=== PATIENT | female | born 1955 | race Caucasian/White ===

== ENCOUNTER 2021-05-03 15:46 | Inpatient (IN) | payer OTHER ==
[~2021-05-03] VITALS: Ht 172.7 cm; Wt 82.8 kg
[2021-05-03 16:26] LABS: Hematocrit 24.1 % (33.0-51.0); Hemoglobin 8.7 g/dL (11.5-16.0); Mean Corpuscular HGB 38.7 pg (26.0-34.0); Mean Corpuscular HGB Conc 36.1 g/dL (31.5-36.5); Mean Corpuscular Volume 107 fL (80-100); Mean Platelet Volume 10.4 fL (9.1-12.4); Platelet Count 224 K/mm3 (150-400); RDW Coefficient Variation 16.5 % (11.7-14.2); RDW Standard Deviation 65.1 fL (35.1-46.3); Red Blood Cell Count 2.25 M/mm3 (3.80-5.20)
[2021-05-03 16:44] LABS: Alanine Aminotransfer (ALT/SGP 37 U/L (12-78); Albumin, Blood 1.5 g/dL (3.4-5.0); Albumin/Globulin Ratio 0.4 (0.8-1.8); Alk Phos 544 U/L (50-136); Anion Gap 10 mmol/L (6-16); Aspartate Aminotrans (AST/SGOT 82 U/L (12-37); Bilirubin, Total 4.5 mg/dL (0.1-1.0); Blood Urea Nitrogen 8 mg/dL (8-24); Bun/Creatinine Ratio 16.3 (12.0-20.0); CO2, Blood 21 mmol/L (21-32); CPK Creatine Kinase 93 U/L (26-193); Calcium, Blood 7.7 mg/dL (8.5-10.1); Chloride, Blood 106 mmol/L (98-108); Creatinine, Blood 0.49 mg/dL (0.40-1.00); Globulin, Blood 3.9 g/dL (2.2-4.0); Glomerular Filtration Rate >60 (60-); Glucose, Blood 92 mg/dL (70-99); Potassium, Blood 4.2 mmol/L (3.5-5.5); Sodium, Blood 137 mmol/L (136-145); Total Protein, Blood 5.4 g/dL (6.4-8.2)
[2021-05-03 16:53] LABS: BAND PERCENT MAN 9 % (0-8); BASOPHILS PERCENT MAN 0 % (0-2); EOSINOPHILS PERCENT MAN 0 % (0-6); LYMPHOCYTES ABSOLUTE MAN 0.58 K/mm3 (0.84-5.20); LYMPHOCYTES PERCENT MAN 2 % (21-46); MONOCYTES ABSOLUTE MAN 0.29 K/mm3 (0.16-1.47); MONOCYTES PERCENT MAN 1 % (4-13); NEUTROPHILS ABSOLUTE MAN 28.51 K/mm3 (1.96-9.15); SEG NEUTROPHILS PERCENT MAN 88 % (41-73); TOTAL CELLS COUNTED 100
[2021-05-03 16:54] LABS: Creatine Kinase MB <1.0 ng/mL (0.0-3.6); Creatine Kinase MB Index Unable to Calculate (0.0-4.0)
[2021-05-03 17:09] LABS: Source, Urine Catheter
[2021-05-03 17:16] LABS: Appearance, Urine Hazy (Clear); Blood, Urine Neg (Neg); Color, Urine Yellow (P-Yellow); Glucose Qualitative, Urine Neg (Neg); Ketones, Urine Neg (Neg); Leukocyte Esterase, Urine 2+ (Neg); Nitrite, Urine Pos (Neg); Protein, Urine 1+ (Neg); Urobilinogen, Urine 2+ (Normal)
[2021-05-03 17:30] LABS: Bilirubin, Urine 1+ (Neg)
[2021-05-03 17:33] LABS: Bacteria Many /hpf; Red Blood Cells, Urine 0-2 /hpf (0-2); Squamous Epithelial Cells Few /hpf (Few); WBC Cast Rare /lpf (0)
[2021-05-03 20:56] LABS: Source, Urine Catheter
[2021-05-03 21:00] LABS: Appearance, Urine Clear (Clear); Bilirubin, Urine Neg (Neg); Blood, Urine 1+ (Neg); Color, Urine Yellow (P-Yellow); Glucose Qualitative, Urine Neg (Neg); Ketones, Urine Neg (Neg); Leukocyte Esterase, Urine 3+ (Neg); Nitrite, Urine Pos (Neg); Protein, Urine 1+ (Neg); Specific Gravity, Urine 1.015 (1.003-1.022); Urobilinogen, Urine 1+ (Normal)
[2021-05-03 21:07] LABS: Bacteria Many /hpf; Red Blood Cells, Urine 0-2 /hpf (0-2); Squamous Epithelial Cells Few /hpf (Few); White Blood Cells, Urine 25-50 /hpf (0-5)
[2021-05-03 21:34] LABS: Alpha Feto Protein, Tumor Mkr 3.5 ng/mL (0.0-8.0); Cancer Antigen 19-9 90.7 U/mL (2.0-37.0); Carcinoembryonic Antigen 3.3 ng/mL (0.0-3.0)
--- NOTE | 2021-05-04 05:00 | NUR ---
SUMMARY PT ARRIVED TO FLOOR IN NO DISTRESS. PT SKIN ISSUES CLEANED AND MEPILEX APPLIED. PICTURES TAKEN. PT PAIN TX PER EMAR W/ RELIEF. PT LATIC IMPROVED. BENITO PLACED DUE TO SKIN ISSUES. PT HAS SLEPT WELL T/O SHIFT. PT CURRENTLY SLEEPING IN NO DISTRESS. CALL LIGHT IN REACH AND BED ALARM ON.
[2021-05-04 05:15] LABS: Hematocrit 23.4 % (33.0-51.0); Hemoglobin 8.3 g/dL (11.5-16.0); Mean Corpuscular HGB 38.4 pg (26.0-34.0); Mean Corpuscular HGB Conc 35.5 g/dL (31.5-36.5); Mean Corpuscular Volume 108 fL (80-100); Mean Platelet Volume 10.5 fL (9.1-12.4); Platelet Count 197 K/mm3 (150-400); RDW Coefficient Variation 16.6 % (11.7-14.2); RDW Standard Deviation 65.5 fL (35.1-46.3); Red Blood Cell Count 2.16 M/mm3 (3.80-5.20); White Blood Cell Count 29.34 K/mm3 (4.00-11.30)
[2021-05-04 06:34] LABS: Alanine Aminotransfer (ALT/SGP 33 U/L (12-78); Albumin, Blood 1.4 g/dL (3.4-5.0); Albumin/Globulin Ratio 0.4 (0.8-1.8); Alk Phos 540 U/L (50-136); Anion Gap 10 mmol/L (6-16); Aspartate Aminotrans (AST/SGOT 72 U/L (12-37); Bilirubin, Total 4.5 mg/dL (0.1-1.0); Blood Urea Nitrogen 9 mg/dL (8-24); Bun/Creatinine Ratio 17.5 (12.0-20.0); CO2, Blood 20 mmol/L (21-32); Calcium, Blood 7.3 mg/dL (8.5-10.1); Chloride, Blood 110 mmol/L (98-108); Creatinine, Blood 0.51 mg/dL (0.40-1.00); Ferritin, Serum 668 ng/mL (8-252); Globulin, Blood 3.2 g/dL (2.2-4.0); Glomerular Filtration Rate >60 (60-); Glucose, Blood 61 mg/dL (70-99); Iron Serum 41 ug/dL (50-170); Percent Saturation 107.9 % (15.0-50.0); Potassium, Blood 4.2 mmol/L (3.5-5.5); Sodium, Blood 140 mmol/L (136-145); Total Iron Binding Capacity 38 ug/dL (250-450); Total Protein, Blood 4.6 g/dL (6.4-8.2)
--- NOTE | 2021-05-04 18:25 | NUR ---
SHIFT SUMMARY PATIENT MEDICATED FOR PAIN X2. PATIENT MEDICATED FOR NAUSEA X1. PATIENT DENIES SHORTNESS OF BREATH. PATIENT WORKED WITH PT TODAY. ABLE TO SIT ON SIDE OF BED, BUT GOT VERY DIZZY. PATIENT IS A 2 PERSON TURN IN BED. PT NOT RECOMMENDING PATIENT TRANSFER YET. DRESSING ON SACRAL WOUND CHANGED X3. BENITO PATENT AND DRAINING. NEW IV PLACED IN LEFT FOREARM. PATIENT IS EATING AND DRINKING WELL. PATIENT IS PLEASANT AND COOPERATIVE WITH CARE.
[2021-05-04 18:52] LABS: Vancomycin, Trough 22.2 ug/mL (5.0-10.0)
[2021-05-05 05:19] LABS: BASOPHILS ABSOLUTE AUTO 0.13 K/mm3 (0.00-0.23); BASOPHILS PERCENT AUTO 1 % (0-2); EOSINOPHILS ABSOLUTE AUTO 0.53 K/mm3 (0.00-0.68); EOSINOPHILS PERCENT AUTO 2 % (0-6); Hemoglobin 8.1 g/dL (11.5-16.0); IMMATURE GRAN ABSOLUTE AUTO 0.19 K/mm3 (0.00-0.10); IMMATURE GRAN PERCENT AUTO 1 % (0-1); LYMPHOCYTES ABSOLUTE AUTO 2.15 K/mm3 (0.84-5.20); LYMPHOCYTES PERCENT AUTO 8 % (21-46); MONOCYTES ABSOLUTE AUTO 1.42 K/mm3 (0.16-1.47); MONOCYTES PERCENT AUTO 6 % (4-13); Mean Corpuscular HGB Conc 33.8 g/dL (31.5-36.5); Mean Platelet Volume 10.8 fL (9.1-12.4); NEUTROPHILS ABSOLUTE AUTO 21.34 K/mm3 (1.96-9.15); NEUTROPHILS PERCENT AUTO 83 % (41-73); Platelet Count 189 K/mm3 (150-400); RDW Coefficient Variation 17.2 % (11.7-14.2); RDW Standard Deviation 71.4 fL (35.1-46.3); Red Blood Cell Count 2.13 M/mm3 (3.80-5.20); White Blood Cell Count 25.76 K/mm3 (4.00-11.30)
[2021-05-05 05:33] LABS: Mean Corpuscular Volume 113 fL (80-100)
[2021-05-05 06:08] LABS: Alanine Aminotransfer (ALT/SGP 40 U/L (12-78); Albumin, Blood 1.5 g/dL (3.4-5.0); Albumin/Globulin Ratio 0.4 (0.8-1.8); Alk Phos 641 U/L (50-136); Anion Gap 8 mmol/L (6-16); Aspartate Aminotrans (AST/SGOT 78 U/L (12-37); Bilirubin, Total 3.7 mg/dL (0.1-1.0); Blood Urea Nitrogen 12 mg/dL (8-24); Bun/Creatinine Ratio 16.3 (12.0-20.0); CO2, Blood 21 mmol/L (21-32); Calcium, Blood 7.5 mg/dL (8.5-10.1); Chloride, Blood 109 mmol/L (98-108); Creatinine, Blood 0.74 mg/dL (0.40-1.00); Globulin, Blood 3.6 g/dL (2.2-4.0); Glomerular Filtration Rate >60 (60-); Glucose, Blood 118 mg/dL (70-99); Magnesium, Blood 1.8 mg/dL (1.6-2.4); Potassium, Blood 4.2 mmol/L (3.5-5.5); Sodium, Blood 138 mmol/L (136-145); Total Protein, Blood 5.1 g/dL (6.4-8.2)
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
--- NOTE | 2021-05-05 16:24 | NUR ---
SHIFT SUMMARY PATIENT MEDICATED FOR PAIN X2, TRAMADOL AND TORODAL. PATIENT MEDICATED FOR NAUSEA X1. PATIENT DENIES SHORTNESS OF BREATH. PATIENT STATED FEELING "FOGGY" THIS AFTERNOON, REQUESTS TO NOT TAKE PAIN MEDICATIONS TOGETHER. PATIENT WORKED WITH OT AND PT. PATIENT STILL VERY WEAK AND COULD NOT STAND. PATIENT EATING AND DRINKING BETTER TODAY. BENITO IS PATENT AND DRAINING TO GRAVITY. PATIENT IS PLEASANT AND COOPERATIVE WITH CARE.
--- NOTE | 2021-05-05 16:25 | NUR ---
Pt states she is tired this afternoon. She worked extensively with OT today, so PT opted to evaluate tomorrow instead. Pt states she can afford private insurance, and understands the importance of pursuing it at this time in her life. She states she is ready to get her "life back on track" after the past few months of chaos that resulted in homelessness. She is alert, oriented, pleasant and cooperative. Pt states she currently has a strained relationship with her mother, related to her mom's "Taoism beliefs", but also states she's glad her mom has visited the past 2 days. Hopefulthat pt will once again thrive with encouragement and offerings of community resources.
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
[2021-05-06 05:48] LABS: BASOPHILS ABSOLUTE AUTO 0.12 K/mm3 (0.00-0.23); BASOPHILS PERCENT AUTO 1 % (0-2); EOSINOPHILS ABSOLUTE AUTO 0.52 K/mm3 (0.00-0.68); EOSINOPHILS PERCENT AUTO 3 % (0-6); Hematocrit 24.6 % (33.0-51.0); Hemoglobin 8.1 g/dL (11.5-16.0); IMMATURE GRAN ABSOLUTE AUTO 0.15 K/mm3 (0.00-0.10); IMMATURE GRAN PERCENT AUTO 1 % (0-1); LYMPHOCYTES ABSOLUTE AUTO 1.89 K/mm3 (0.84-5.20); LYMPHOCYTES PERCENT AUTO 10 % (21-46); MONOCYTES ABSOLUTE AUTO 1.16 K/mm3 (0.16-1.47); MONOCYTES PERCENT AUTO 6 % (4-13); Mean Corpuscular HGB 37.5 pg (26.0-34.0); Mean Corpuscular HGB Conc 32.9 g/dL (31.5-36.5); Mean Corpuscular Volume 114 fL (80-100); Mean Platelet Volume 10.7 fL (9.1-12.4); NEUTROPHILS ABSOLUTE AUTO 15.84 K/mm3 (1.96-9.15); NEUTROPHILS PERCENT AUTO 81 % (41-73); Platelet Count 186 K/mm3 (150-400); RDW Coefficient Variation 16.8 % (11.7-14.2); Red Blood Cell Count 2.16 M/mm3 (3.80-5.20); White Blood Cell Count 19.68 K/mm3 (4.00-11.30)
[2021-05-06 11:34] LABS: Vancomycin, Trough 26.9 ug/mL (5.0-10.0)
--- NOTE | 2021-05-06 13:02 | NUR ---
Met with pt again today for therapeutic visit. She remenisced on her life with her late . She talked about how happy they were for many years in sobriety together. 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 She remains extremely deconditioned, but plan in place to work with PT and OT throughout this hospital stay. Pt given phone number for private insurance to call today.
--- NOTE | 2021-05-06 15:33 | NUR ---
theraputic time with pateint brought palliative volunteer in to visit with pt and talk about regular things nothing medical.
--- NOTE | 2021-05-06 16:56 | NUR ---
DAY SHIFT SUMMARY PT PLEASANT, WOUND TO SACRUM/BUTTOCK DRAINING, WOUND CARE PROVIDED AND WOUND REDRESSED. PT ON RA. TELE ON WITH NSR AT 91. PT IS STIFF AND WEAK, UNABLE TO REPOSITION SELF IN BED, 2 PERSON ASSIST TO REPOSITION. PT NOT UP FROM BED TODAY. PITTING EDEMA BLE. PT IS COOPERATIVE WITH CARE. CALL LIGHT WITHIN REACH. SPEAKING WITH CARE MANAGEMENT ABOUT POSSIBLE PLACEMENT FOR DISCHARGE.
[2021-05-06 18:32] LABS: Creatinine, Blood 0.91 mg/dL (0.40-1.00); Vancomycin, Random 25.4 ug/mL
--- NOTE | 2021-05-07 04:23 | NUR ---
SHIFT SUMMARY NO ACUTE CHANGES IN PT. PT IS PLEASANT. TELE HAS BEEN IN THE 90'S. MEDICATED FOR PAIN PER EMAR. BLE PITTING EDEMA. CALL LIGHT WITHIN REACH. WILL CONTINUE TO MONITOR.
[2021-05-07 11:32] LABS: Vancomycin, Random 16.7 ug/mL
--- NOTE | 2021-05-07 16:38 | NUR ---
DAY SHIFT SUMMARY PT PLEASANT. PT/OT IN TO WORK WITH PT TODAY. PT ABLE TO GET PATIENT UP TO CHAIR AT BEDSIDE TO EAT LUNCH. PATIENT VOICED THIS FEELING GOOD. 2 NURSES AND INFORMATICS CONSULTANT ABLE TO GET PT BACK TO BED AFTER LUNCH. PT STILL WITH 4+ EDEMA TO BLE. TELE RUNING AT [facility] IN 90S, ORDER PLACED AND COMPLETED TO DC TELE. JIGNA DENNY'D PER ORDER. CALL LIGHT WITHIN REACH.
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
--- NOTE | 2021-05-08 04:23 | NUR ---
SHIFT SUMMARY AOX4. SLOW TO RESPOND. PLEASENT & COOPERATIVE c CARE. VSS. REPORTS 8/10 PAIN IN WOUND, LOW BACK & KNEES, MEDICATED 1X c 100MG ULTRAM. DENIES N/V OR SOB. VERY WEAK & DECONDITIONED, 2 STAND PIVOT TRANSFER TO [facility] c GAITBELT. +4 PITTING EDEMA T/O BLE. BENITO DC'D YESTERDAY PER DAY SHIFT, PT HAS ONLY ROUGHLY 100ML URINE OUTPUT SINCE. ENCOURAGED PO FLUIDS, WILL BLADDER SCAN IF PT DOESNT VOID AGAIN BEFORE END OF SHIFT. DRESSING ON SACRUM WOUND CHANGED. MOD AMOUNT SEROUS, YELLOW DRAINAGE FROM RED, EXCORIATED WOUND. PLAN TO POSSIBLY DC TODAY. WCTM UNTIL DAY NURSE ASSUMES CARE.
[2021-05-08 06:15] LABS: Anion Gap 8 mmol/L (6-16); Blood Urea Nitrogen 9 mg/dL (8-24); Bun/Creatinine Ratio 12.4 (12.0-20.0); CO2, Blood 30 mmol/L (21-32); Calcium, Blood 7.9 mg/dL (8.5-10.1); Chloride, Blood 102 mmol/L (98-108); Creatinine, Blood 0.73 mg/dL (0.40-1.00); Glomerular Filtration Rate >60 (60-); Glucose, Blood 87 mg/dL (70-99); Potassium, Blood 3.7 mmol/L (3.5-5.5); Sodium, Blood 140 mmol/L (136-145)
[2021-05-08 07:00] LABS: BASOPHILS ABSOLUTE AUTO 0.09 K/mm3 (0.00-0.23); BASOPHILS PERCENT AUTO 1 % (0-2); EOSINOPHILS ABSOLUTE AUTO 0.41 K/mm3 (0.00-0.68); EOSINOPHILS PERCENT AUTO 2 % (0-6); Hematocrit 23.6 % (33.0-51.0); IMMATURE GRAN PERCENT AUTO 1 % (0-1); LYMPHOCYTES ABSOLUTE AUTO 1.79 K/mm3 (0.84-5.20); LYMPHOCYTES PERCENT AUTO 10 % (21-46); MONOCYTES ABSOLUTE AUTO 1.71 K/mm3 (0.16-1.47); MONOCYTES PERCENT AUTO 10 % (4-13); Mean Corpuscular HGB 38.5 pg (26.0-34.0); Mean Corpuscular HGB Conc 33.9 g/dL (31.5-36.5); Mean Corpuscular Volume 114 fL (80-100); NEUTROPHILS ABSOLUTE AUTO 13.62 K/mm3 (1.96-9.15); NEUTROPHILS PERCENT AUTO 77 % (41-73); Platelet Count 180 K/mm3 (150-400); RDW Coefficient Variation 16.9 % (11.7-14.2); RDW Standard Deviation 69.5 fL (35.1-46.3); Red Blood Cell Count 2.08 M/mm3 (3.80-5.20); White Blood Cell Count 17.72 K/mm3 (4.00-11.30)
--- NOTE | 2021-05-08 18:13 | NUR ---
SHIFT SUMMARY PT IS A/O X4. PT REPORTED PAIN AND WAS TREATED PER EMAR. DRESSINGS ON SACRUM AND BUTTOCKS WERE CHANGED. MOD YELLOW DRAINAGE WAS PRESENT. PT BEGAN URINATING APPROPRIATELY THROUGHOUT SHIFT AFTER DC OF BENITO DURING THE NIGHT. NO DISTRESS WAS NOTED AND PT WAS COOPERATIVE WITH CARE.
--- NOTE | 2021-05-09 04:27 | NUR ---
HEALTH SCIENCE WRITER SUMMARY ADMITTED FOR SEPTIC SHOCK - RESOLVED. PT IS A DNR. POSSIBLE DISCHARGE TOMORROW. PT IS ALERT AND ORIENTED. STILL REQUIRES TWO PERSON ASSIST TO THE COMMODE - PT IS VERY WEAK AND STATES HER "KNEES ARE SHOT". PT MEDICATED WITH TRAMADOL X1 FOR THE PAIN IN HER COCCYX WOUND ALONG WITH PAIN IN HER LOW BACK AND KNEES. PT HAS BEEN RESTING THROUGHOUT THE NIGHT WITH NO OTHER COMPLAINTS.
--- NOTE | 2021-05-09 18:30 | NUR ---
SHIFT SUMMARY NO ACUTE CHANGES WITH PT THIS SHIFT. PT HAD ONE SMALL BM. PATIENT TOLERATED CARE WELL. SACRUM WOUND WAS CLEANSED AND DRESSING WAS CHANGED. PAIN WAS TREATED PER EMAR. SEE PREVIOUS NOTES.
--- NOTE | 2021-05-10 04:48 | NUR ---
A/OX4. 1-2 PA TO BSC W/ FWW. MEPELEX DRESSING IN PLACE SACRAL DECUB - ESCORIATION SURROUNDING ULCER. Q6 PRN TRAMADOL FOR PAIN. DISCHARGE PLANNING ON BOARD, BUT HAVING DIFFICULTIES WITH PLACEMENT ISSUES.
--- NOTE | 2021-05-10 04:55 | NUR ---
A/OX4. 1-2 PA TO BSC. MEPELEX TO SACRAL DECUB, ESCORIATED SURROUNDING ULCER. Q6 TRAMADOL FOR PAIN. POSSIBLE DC 05/10, DCP ON BOARD, BUT HAVING DIFFICULTIES WITH PLACEMENT ISSUES.
--- NOTE | 2021-05-10 17:25 | NUR ---
SHIFT SUMMARY PATIENT ALERT AND ORIENTED THIS SHIFT. PATIENT UP TO THE BEDSIDE RECLINER THIS MORNING FOR BREAKFAST AND LUNCH. PATIENT BACK TO BED AFTER LUNCH. PATIENT UP TO BSC MULTIPLE TIMES THIS SHIFT WITH 1 ASSIST. PATIENT WALKED INTO THE HALLWAY THIS AFTERNOON WITH PT. PATIENT CURRENTLY SITTING UP IN BED WATCHING TELEVISION.
--- NOTE | 2021-05-11 07:44 | NUR ---
NO CHANGES FROM PREVIOUS SHIFT. PATIENT CONTINUES TO HAVE A VERY SORE BUTTOCKS, WELL HER LEGS. TRAMADOL 100MG GIVEN TWICE FOR COMFORT GLUTEAL/SACRAL WOUND COVERED WITH PINK OINTMENT PATIENT CONTINUED TO SCRATCH ON MEMPILEX UNTIL THEY CAME OFF
--- NOTE | 2021-05-11 16:09 | NUR ---
SHIFT SUMMARY PATIENT DENIES PAIN, NAUSEA, AND SHORTNESS OF BREATH. EATING AND DRINKING WELL. UP IN CHAIR FOR MEALS ONE ASSIST W/FWW AND GAIT BELT. STRENGTH SLOWLY INCREASING. WOUND CARE COMPLETED. PLEASANT AND COOPERATIVE WITH CARE.
[2021-05-12 04:45] LABS: Hematocrit 24.9 % (33.0-51.0); Hemoglobin 8.8 g/dL (11.5-16.0); Mean Corpuscular HGB 38.4 pg (26.0-34.0); Mean Corpuscular HGB Conc 35.3 g/dL (31.5-36.5); Mean Corpuscular Volume 109 fL (80-100); Mean Platelet Volume 10.8 fL (9.1-12.4); Platelet Count 233 K/mm3 (150-400); RDW Coefficient Variation 17.4 % (11.7-14.2); RDW Standard Deviation 69.2 fL (35.1-46.3); Red Blood Cell Count 2.29 M/mm3 (3.80-5.20)
[2021-05-12 04:56] LABS: International Normalized Ratio 1.25; Prothrombin Time Results 12.9 Sec (9.7-11.5)
[2021-05-12 05:05] LABS: Alanine Aminotransfer (ALT/SGP 33 U/L (12-78); Albumin, Blood 1.5 g/dL (3.4-5.0); Albumin/Globulin Ratio 0.4 (0.8-1.8); Alk Phos 478 U/L (50-136); Anion Gap 7 mmol/L (6-16); Aspartate Aminotrans (AST/SGOT 76 U/L (12-37); Bilirubin, Total 2.4 mg/dL (0.1-1.0); Blood Urea Nitrogen 8 mg/dL (8-24); Bun/Creatinine Ratio 13.3 (12.0-20.0); CO2, Blood 32 mmol/L (21-32); Chloride, Blood 98 mmol/L (98-108); Globulin, Blood 3.9 g/dL (2.2-4.0); Glomerular Filtration Rate >60 (60-); Glucose, Blood 78 mg/dL (70-99); Potassium, Blood 3.6 mmol/L (3.5-5.5); Sodium, Blood 137 mmol/L (136-145); Total Protein, Blood 5.4 g/dL (6.4-8.2)
--- NOTE | 2021-05-12 05:16 | NUR ---
SHIFT SUMMARY A/OX3, FLAT AFFECT. COOPERATIVE WITH CARE. C/O PAIN TO BOTTOM AND BLE, MEDICATED PER EMAR. MEPILEX CHANGED TO COCCYX WOUND. VSS, NO ACUTE CHANGES AT THIS TIME. BED IN LOWEST POSITION WITH CALL LIGHT IN REACH. WILL CONTINUE TO MONITOR AND REPORT TO ONCOMING RN.
[2021-05-12 07:19] LABS: BAND PERCENT MAN 8 % (0-8); BASOPHILS PERCENT MAN 0 % (0-2); EOSINOPHILS ABSOLUTE MAN 0.44 K/mm3 (0.00-0.68); EOSINOPHILS PERCENT MAN 2 % (0-6); LYMPHOCYTES ABSOLUTE MAN 4.48 K/mm3 (0.84-5.20); LYMPHOCYTES PERCENT MAN 20 % (21-46); MONOCYTES ABSOLUTE MAN 0.89 K/mm3 (0.16-1.47); MONOCYTES PERCENT MAN 4 % (4-13); NEUTROPHILS ABSOLUTE MAN 16.35 K/mm3 (1.96-9.15); PROMYELOCYTE ABSOLUTE MAN 0.22 K/mm3 (0.00-0.00); PROMYELOCYTE PERCENT MAN 1 % (0-0); SEG NEUTROPHILS PERCENT MAN 65 % (41-73); TOTAL CELLS COUNTED 100
--- NOTE | 2021-05-12 16:31 | NUR ---
Spiritual care visit conducted by Lee Hunt. He assesses pt's spiritual distress in regards to her relationship to God amidst rejection from the [employer] fellowship. He provides affirms her value and position in God's family and provides pastoral guidance and prayer. She responds with showing increased peace and augusta. He will continue to remain available
--- NOTE | 2021-05-12 18:46 | NUR ---
SHIFT SUMMARY PATIENT RESTING IN BED. CALM AND COOPERATIVE WITH CARE. 1P ASSIST TO BEDSIDE COMMODE WITH WALKER. .PATIENT COMPLAINED OF PAIN ON SACRAL AREA, KNEES, AND FEET. MEDICATED PER AUG. PATIENT STATED HAVING BURNING WITH URINATION LATER ON DURING SHIFT. VITAL SIGNS STABLE. WILL CONTINUE TO MONITOR.
--- NOTE | 2021-05-13 00:06 | NUR ---
Pt is awake, alert, and orientated x 4. She is pleasant and friendly and calls for assistance appropriately. She expressed concern about the dressing on her sacral wound as she was worried that it would become wet and need to be changed. Dressing was checked and found to be dry and intact. Pt states she is having pain in her legs, feet, and back. Pain meds were given per EMAR.
--- NOTE | 2021-05-13 06:23 | NUR ---
Pt is alert and oriented x 2 but seems distant when conversing with her. She is 1 person assist to bedside commode and she appears wobbly on her feet. Pt is quiet most of the time and calls for help appropriately. She was admitted for septic shock but placement seems to be an issue as pt is homeless. Pt states that she is having pain in her feet, legs, and lower back. Pain meds administered per EMAR upon pt request. Pt is weak and is having a hard time pulling herself up to a standing position from the commode, even when she is using the walker to lean on.
[2021-05-13 08:33] LABS: BASOPHILS ABSOLUTE AUTO 0.12 K/mm3 (0.00-0.23); BASOPHILS PERCENT AUTO 1 % (0-2); EOSINOPHILS ABSOLUTE AUTO 0.29 K/mm3 (0.00-0.68); EOSINOPHILS PERCENT AUTO 1 % (0-6); Hematocrit 25.3 % (33.0-51.0); IMMATURE GRAN PERCENT AUTO 1 % (0-1); LYMPHOCYTES PERCENT AUTO 12 % (21-46); MONOCYTES ABSOLUTE AUTO 1.86 K/mm3 (0.16-1.47); MONOCYTES PERCENT AUTO 9 % (4-13); Mean Corpuscular HGB 38.8 pg (26.0-34.0); Mean Corpuscular HGB Conc 35.6 g/dL (31.5-36.5); Mean Corpuscular Volume 109 fL (80-100); Mean Platelet Volume 10.7 fL (9.1-12.4); NEUTROPHILS ABSOLUTE AUTO 15.84 K/mm3 (1.96-9.15); NEUTROPHILS PERCENT AUTO 77 % (41-73); Platelet Count 264 K/mm3 (150-400); RDW Coefficient Variation 17.6 % (11.7-14.2); RDW Standard Deviation 70.8 fL (35.1-46.3); Red Blood Cell Count 2.32 M/mm3 (3.80-5.20); White Blood Cell Count 20.61 K/mm3 (4.00-11.30)
--- NOTE | 2021-05-13 09:40 | NUR ---
Brief follow ups with pt. Advises she is being reevaluated for [facility] as cost for insurance to high. pt being seen by sam will continue to follow.
--- NOTE | 2021-05-13 18:36 | NUR ---
SHIFT SUMMARY PT UP IN CHAIR TIL AFTER LUNCH AND THEN TOOK A SHOWER. LAYED DOWN FOR THE AFTERNOON AND THEN UP FOR SUPPER IN CHAIR. COMPRESSION STOCKINGS PLACED DUE TO ONGOING LEG SWELLING PER HER REQUEST AND MD RECOMMENDATION. DRESSING TO BUTTOCK WOUNDS CHANGED AFTER SHOWER.
--- NOTE | 2021-05-14 05:26 | NUR ---
SHIFT SUMMARY: PATIENT IS REPORTING PAIN IN BUTTOCKS, WOUND SITE. TRAMADOL, TYLENOL AND T&P ARE EFFECTIVE FOR PAIN CONTROL. VSS, UP TO THE BSC TO VOID WITH ASSIST OF 1 AND GAIT BELT. WOUND CARE PROVIDED AND NEW DRESSING WAS PLACED.
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
--- NOTE | 2021-05-14 18:39 | NUR ---
SHIFT SUMMARY PT UP IN CHAIR TIL LATE AFTERNOON AND THEN LAYED DOWN FOR A NAP. MEDICATED FOR PAIN ONCE TODAY. DRESSING TO BUTTOCKS CHANGED WITH MODERATE AMOUNT OF DISCHARGE BUT DRESSING WAS FALLING OFF. SITE REMAIN QUITE UNCOMFORTABLE FOR PT. 1 PERSON ASSIST UP TO BSC USING A FWW.
[2021-05-15 05:23] LABS: Hematocrit 24.6 % (33.0-51.0); Hemoglobin 8.6 g/dL (11.5-16.0); Mean Corpuscular HGB 38.4 pg (26.0-34.0); Mean Corpuscular Volume 110 fL (80-100); Mean Platelet Volume 10.7 fL (9.1-12.4); Platelet Count 266 K/mm3 (150-400); RDW Coefficient Variation 17.1 % (11.7-14.2); RDW Standard Deviation 68.8 fL (35.1-46.3); Red Blood Cell Count 2.24 M/mm3 (3.80-5.20)
[2021-05-15 05:46] LABS: White Blood Cell Count 19.21 K/mm3 (4.00-11.30)
[2021-05-15 07:09] LABS: BASOPHILS ABSOLUTE MAN 0.38 K/mm3 (0.00-0.23); BASOPHILS PERCENT MAN 2 % (0-2); EOSINOPHILS ABSOLUTE MAN 0.76 K/mm3 (0.00-0.68); EOSINOPHILS PERCENT MAN 4 % (0-6); LYMPHOCYTES ABSOLUTE MAN 3.64 K/mm3 (0.84-5.20); LYMPHOCYTES PERCENT MAN 19 % (21-46); MONOCYTES ABSOLUTE MAN 1.53 K/mm3 (0.16-1.47); MONOCYTES PERCENT MAN 8 % (4-13); NEUTROPHILS ABSOLUTE MAN 12.87 K/mm3 (1.96-9.15); SEG NEUTROPHILS PERCENT MAN 67 % (41-73); TOTAL CELLS COUNTED 100
--- NOTE | 2021-05-15 07:15 | NUR ---
PT with extended stay after septic shock with decub ulcers & severe deconditing. 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 Working with dc planning on dc plan. Weak with unsteady gait at times up with 1 mod assist cues fww gait belt to bsc or bsc. Wounds to sacrum & buttocks improving. Continent of bowel & bladder. had 18 years sobrity but relapsed with of Spouse.
--- NOTE | 2021-05-15 17:09 | NUR ---
SUMMARY PT SITTING UP IN BED READING, PT HAS BEEN PLEASANT AND COOPERATIVE WITH CARE, ON THE PHONE WITH MEDICAID FOR 2 HOURS THIS MORNING, WORKED WITH PT/OT, UP IN THE CHAIR FOR SEVERAL HOURS, MED PER EMAR FOR PAIN, VSS, NO COMPLAINTS, WILL CONTINUE TO MONITOR
--- NOTE | 2021-05-16 04:24 | NUR ---
MANDI REMAINED STABLE ALL NIGHT, HER SACRAL DRESSING IS CLEAR AND INTACT. SHE REQUESTED TRAMADOL FOR A LEVEL 7 HEADACHE, FELL ASLEEP ABOUT ONE HOUR LATER
[2021-05-16 05:58] LABS: Hematocrit 24.8 % (33.0-51.0); Hemoglobin 8.4 g/dL (11.5-16.0); Mean Corpuscular HGB 37.2 pg (26.0-34.0); Mean Corpuscular HGB Conc 33.9 g/dL (31.5-36.5); Mean Corpuscular Volume 110 fL (80-100); Mean Platelet Volume 10.7 fL (9.1-12.4); Platelet Count 272 K/mm3 (150-400); Red Blood Cell Count 2.26 M/mm3 (3.80-5.20); White Blood Cell Count 20.96 K/mm3 (4.00-11.30)
[2021-05-16 06:22] LABS: Albumin, Blood 1.5 g/dL (3.4-5.0); Albumin/Globulin Ratio 0.4 (0.8-1.8); Bilirubin, Direct 1.9 mg/dL (0.0-0.3); Bilirubin, Indirect 0.5 mg/dL (0.1-0.7); Bilirubin, Total 2.4 mg/dL (0.1-1.0); Globulin, Blood 4.2 g/dL (2.2-4.0); Total Protein, Blood 5.7 g/dL (6.4-8.2)
--- NOTE | 2021-05-16 15:56 | NUR ---
Pt. was sitting up steven chair. After welcoming me, she had good news to share. She was deeply thankful that she had been accepted by [facility], and would not be carrying the burdern of hospital bills. After sharing concerns about her physical therapy, I offered emotional support, and explored what her purpose in this health esteban was all about. She sees [facility] as being a direct "Gift from God" and is thankful for it. Prayed with pt. Improved Hope was the main outcome of this visit.
--- NOTE | 2021-05-16 18:12 | NUR ---
SHIFT SUMMARY PATIENT PLEASANT AND COOPERATIVE WITH CARE THROUGHOUT SHIFT. PATIENT [place] A 1P ASS[place] WT WALKER [place] [facility] SACRAL AND LEFT THIGH DRESSING SATURATED AND CHANGED DURING SHIFT. TOLERATED WELL. PATIENT AWAITING [facility]. VITAL SIGNS STABLE. WILL CONTINUE TO MONITOR.
--- NOTE | 2021-05-17 05:25 | NUR ---
MANDI REMAINED STABLE THROUGHOUT THE SHIFT. MENTIONED THAT SHE HOPED TO REGAIN HER STRENGHT TO WALK AGAIN AFTER I HELPED HER TO THE BEDSIDE COMMODE. SHE HAD A RESTFUL NIGHT, HER PAIN SEEMED TO BE UNDER CONTROL. SHE DIDN'T ASK FOR PAIN MEDS LAST NIGHT
[2021-05-17 05:46] LABS: Hemoglobin 8.6 g/dL (11.5-16.0); Mean Corpuscular HGB 37.6 pg (26.0-34.0); Mean Corpuscular HGB Conc 34.4 g/dL (31.5-36.5); Mean Corpuscular Volume 109 fL (80-100); Mean Platelet Volume 10.7 fL (9.1-12.4); Platelet Count 276 K/mm3 (150-400); RDW Coefficient Variation 16.8 % (11.7-14.2); RDW Standard Deviation 67.2 fL (35.1-46.3); Red Blood Cell Count 2.29 M/mm3 (3.80-5.20); White Blood Cell Count 20.28 K/mm3 (4.00-11.30)
[2021-05-17 06:19] LABS: Alanine Aminotransfer (ALT/SGP 29 U/L (12-78); Albumin, Blood 1.6 g/dL (3.4-5.0); Albumin/Globulin Ratio 0.4 (0.8-1.8); Alk Phos 461 U/L (50-136); Anion Gap 6 mmol/L (6-16); Aspartate Aminotrans (AST/SGOT 63 U/L (12-37); Bilirubin, Total 2.4 mg/dL (0.1-1.0); Blood Urea Nitrogen 7 mg/dL (8-24); Bun/Creatinine Ratio 10.5 (12.0-20.0); CO2, Blood 34 mmol/L (21-32); Calcium, Blood 8.6 mg/dL (8.5-10.1); Chloride, Blood 99 mmol/L (98-108); Creatinine, Blood 0.67 mg/dL (0.40-1.00); Globulin, Blood 3.6 g/dL (2.2-4.0); Glomerular Filtration Rate >60 (60-); Glucose, Blood 67 mg/dL (70-99); Potassium, Blood 3.7 mmol/L (3.5-5.5); Sodium, Blood 139 mmol/L (136-145); Total Protein, Blood 5.2 g/dL (6.4-8.2)
--- NOTE | 2021-05-17 18:38 | NUR ---
SHIFT SUMMARY PATIENT RESTING IN BED. 1 PERSON ASSIST TO BEDSIDE COMMODE WITH WALKER AND GAIT BELT. PATIENT IS PLEASANT AND COOPERATIVE WITH CARE. USES CALL LIGHT APPROPRIATLY. VITAL SIGNS STABLE. WILL CONTINUE TO MONITOR.
--- NOTE | 2021-05-18 04:53 | NUR ---
MANDI'S VITALS WERE STABLE. HER SCRAL DRESSING WAS CHANGED. SHE RECEIVED HER PAIN MEDS BEFORE GOING TO BED. SHE HAD A RESTFUL NIGHT
[2021-05-18 07:49] LABS: Hematocrit 25.6 % (33.0-51.0); Hemoglobin 8.7 g/dL (11.5-16.0); Mean Corpuscular HGB 37.7 pg (26.0-34.0); Mean Corpuscular Volume 111 fL (80-100); Mean Platelet Volume 10.2 fL (9.1-12.4); Platelet Count 274 K/mm3 (150-400); RDW Coefficient Variation 16.5 % (11.7-14.2); RDW Standard Deviation 66.4 fL (35.1-46.3); Red Blood Cell Count 2.31 M/mm3 (3.80-5.20); White Blood Cell Count 20.57 K/mm3 (4.00-11.30)
[2021-05-18 08:40] LABS: Anion Gap 6 mmol/L (6-16); Blood Urea Nitrogen 6 mg/dL (8-24); Bun/Creatinine Ratio 8.8 (12.0-20.0); CO2, Blood 33 mmol/L (21-32); Calcium, Blood 8.3 mg/dL (8.5-10.1); Chloride, Blood 100 mmol/L (98-108); Creatinine, Blood 0.68 mg/dL (0.40-1.00); Glomerular Filtration Rate >60 (60-); Glucose, Blood 82 mg/dL (70-99); Potassium, Blood 3.4 mmol/L (3.5-5.5); Sodium, Blood 139 mmol/L (136-145)
--- NOTE | 2021-05-18 18:04 | NUR ---
SHIFT SUMMARY PATIENT IS PLEASANT AND COOPERATIVE WITH CARE. PATIENT IS AWAITING PLACEMENT TO SNF. 1 P ASSIST WITH WALKER AND GAIT BELT TO BSC MULTIPLE TIMES THROUGHOUT SHIFT. UP IN RECLINER FOR LUNCH. WORKED WITH PHYSICAL THERAPY TODAY. TOLERATED WELL. NOTED WHEEZING ON THE RIGHT SIDE. VITAL SIGNS STABLE. WILL CONTINUE TO MONITOR.
--- NOTE | 2021-05-18 23:29 | NUR ---
2300: TOBACCO GRADER WAS ASSISTING PT TO TRANSFER WITH A GAITBELT AND FWW TO [facility], WHEN PT'S KNEES "WENT OUT" AND SHE BECAME VERY WEAK. TOBACCO GRADER CALLED FOR HELP, AND STAFF ASSSISTED PT BACK INTO BED SAFELY WITHOUT INJURY. PT REPORTED THAT SHE HAD A SIMILAR FALL 3 WEEKS AGO, WHEN SHE WAS STEPPING UP ONTO A CURB AND HER RIGHT KNEE "WENT OUT" AND SHE FELL, HITTING THE BACK OF HER HEAD. MANDI REPORTS "BONE ON BONE" PAIN IN THE LEFT KNEE AND OSTEOARTHRITIS IN THE RIGHT KNEE WITH CHRONIC RESIDUAL PAIN. BED IN LOWEST POSITION, CALL LIGHT WITHIN REACH, BED ALARM ON.
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
--- NOTE | 2021-05-19 06:30 | NUR ---
WOUND CARE PERFORMED - CLEANSED WITH WOUND CLEANSER, COVERED WITH MEPILEX TO PRESSURE ULCERS ON SACRAL AREA AND RIGHT GLUTE.
[2021-05-19 08:21] LABS: BASOPHILS ABSOLUTE AUTO 0.17 K/mm3 (0.00-0.23); BASOPHILS PERCENT AUTO 1 % (0-2); EOSINOPHILS ABSOLUTE AUTO 0.35 K/mm3 (0.00-0.68); EOSINOPHILS PERCENT AUTO 2 % (0-6); Hematocrit 24.9 % (33.0-51.0); Hemoglobin 8.4 g/dL (11.5-16.0); IMMATURE GRAN ABSOLUTE AUTO 0.09 K/mm3 (0.00-0.10); IMMATURE GRAN PERCENT AUTO 1 % (0-1); LYMPHOCYTES ABSOLUTE AUTO 2.56 K/mm3 (0.84-5.20); LYMPHOCYTES PERCENT AUTO 13 % (21-46); MONOCYTES ABSOLUTE AUTO 2.26 K/mm3 (0.16-1.47); MONOCYTES PERCENT AUTO 12 % (4-13); Mean Corpuscular HGB 36.8 pg (26.0-34.0); Mean Corpuscular HGB Conc 33.7 g/dL (31.5-36.5); Mean Corpuscular Volume 109 fL (80-100); Mean Platelet Volume 10.4 fL (9.1-12.4); NEUTROPHILS ABSOLUTE AUTO 13.74 K/mm3 (1.96-9.15); NEUTROPHILS PERCENT AUTO 72 % (41-73); Platelet Count 260 K/mm3 (150-400); RDW Coefficient Variation 16.1 % (11.7-14.2); RDW Standard Deviation 64.9 fL (35.1-46.3); Red Blood Cell Count 2.28 M/mm3 (3.80-5.20); White Blood Cell Count 19.17 K/mm3 (4.00-11.30)
[2021-05-19 08:33] LABS: Alanine Aminotransfer (ALT/SGP 26 U/L (12-78); Albumin, Blood 1.5 g/dL (3.4-5.0); Albumin/Globulin Ratio 0.4 (0.8-1.8); Alk Phos 469 U/L (50-136); Anion Gap 6 mmol/L (6-16); Aspartate Aminotrans (AST/SGOT 54 U/L (12-37); Bilirubin, Total 2.3 mg/dL (0.1-1.0); Blood Urea Nitrogen 6 mg/dL (8-24); Bun/Creatinine Ratio 9.1 (12.0-20.0); CO2, Blood 33 mmol/L (21-32); Calcium, Blood 8.4 mg/dL (8.5-10.1); Chloride, Blood 100 mmol/L (98-108); Creatinine, Blood 0.66 mg/dL (0.40-1.00); Globulin, Blood 3.7 g/dL (2.2-4.0); Glomerular Filtration Rate >60 (60-); Glucose, Blood 83 mg/dL (70-99); Potassium, Blood 3.3 mmol/L (3.5-5.5); Sodium, Blood 139 mmol/L (136-145); Total Protein, Blood 5.2 g/dL (6.4-8.2)
--- NOTE | 2021-05-19 17:33 | NUR ---
NO ACUTE CHANGES THIS SHIFT. PATIENT ENCOURAGED TO GET UP TO CHAIR MORE FREQUENTLY. PAIN CONTROLLED WITH TRAMADOL X1 THIS SHIFT. DRESSINGS TO BUTTOCKS AND THIGH REMAIN C/D/I. PATIENT CALLS APPROPRIATELY FOR ASSISTANCE. PATIENT UP WITH FWW, GB AND 1 ASSIST. AWAITING PLACEMENT.
--- NOTE | 2021-05-20 04:05 | NUR ---
SHIFT SUMMARY A/OX3, WITHDRAWN AFFECT. 1-2 ASSIST TO BSC. MEPILEX TO SACRUM CHANGED. VSS, NO ACUTE CHANGES AT THIS TIME. BED IN LOWEST POSITION WITH CALL LIGHT IN REACH. WILL CONTINUE TO MONITOR AND REPORT TO ONCOMING RN.
[2021-05-20 04:50] LABS: Hematocrit 25.8 % (33.0-51.0); Mean Corpuscular HGB 37.5 pg (26.0-34.0); Mean Corpuscular HGB Conc 34.9 g/dL (31.5-36.5); Mean Corpuscular Volume 108 fL (80-100); Mean Platelet Volume 10.3 fL (9.1-12.4); Platelet Count 277 K/mm3 (150-400); RDW Coefficient Variation 15.9 % (11.7-14.2)
[2021-05-20 06:04] LABS: Anion Gap 6 mmol/L (6-16); Blood Urea Nitrogen 6 mg/dL (8-24); CO2, Blood 33 mmol/L (21-32); Calcium, Blood 8.7 mg/dL (8.5-10.1); Chloride, Blood 102 mmol/L (98-108); Creatinine, Blood 0.67 mg/dL (0.40-1.00); Glomerular Filtration Rate >60 (60-); Glucose, Blood 70 mg/dL (70-99); Magnesium, Blood 1.9 mg/dL (1.6-2.4); Sodium, Blood 141 mmol/L (136-145)
--- NOTE | 2021-05-20 10:57 | NUR ---
Pt. was sitting up in chair, and welcomed my visit. Physical/emotional progress was evident since my last visit. Using anticipatory guidance we began to project what post recovery could look like. Pt. communicated encouragement that the hospital staff has given, and was thankful for it. Pt. demonstrated a renewed sense of responsibility for her physical recovery. Pt. verbaalized an increased resolve to be faithful to physical therapy strategies. Pastoral prayer was given.
--- NOTE | 2021-05-20 17:29 | NUR ---
NO ACUTE CHANGES THIS SHIFT. PATIENT UP TO CHAIR AND RESTROOM THIS SHIFT WITH FWW AND 1-2 ASSIST. VSS, ON RA. DRESSING CHANGED TO SARAL WOUND AND PICTURES TAKEN AND PLACED ON CHART. PATIENTS SISTER ADELSO CAME BY AND DROPPED OFF SOME CLOTHES AND SLIPPERS, BUT DID NOT WANT TO GO IN AND VISIT PATIENT. ADELSO STATED THAT SHE THINKS THAT HER VISIT WOULD DO MORE HARM THAN GOOD AND THEIR RELATIONSHIP IS STRAINED. PATIENT HAS BEEN CALM AND COOPERATIVE WITH CARE THIS SHIFT. CONTINUES TO AWAIT PLACEMENT.
--- NOTE | 2021-05-20 17:46 | NUR ---
Pt is awaiting placement in SNF. She remains alert and oriented, sometimes forgetful in learning new information. She is generally pleasant, cooperative and more engaged in discussing future plans than she had been in the past. She has been highly encouraged by her strength and improvement in gait and ambulation. She is only able to walk a few steps in her room with PT assist, gait belt and walker, but she states this gives her hope, and a sense of possible independence. She continues visits with pastoral care. I will remain available for encouragement, therapeutic listening.
--- NOTE | 2021-05-21 03:35 | NUR ---
SHIFT SUMMARY A/OX3, 1 ASSIST WITH GB TO BSC. C/O PAIN TO SACRUM AND BLE, MEDICATED PER EMAR. VSS, NO ACUTE CHANGES AT THIS TIME. BED IN LOWEST POSITION WITH CALL LIGHT IN REACH. WILL CONTINUE TO MONITOR AND REPORT TO ONCOMING RN.
--- NOTE | 2021-05-21 18:30 | NUR ---
PATIENT HAD A GOOD DAY TODAY. AMBULATING TO AND FROM BATHROOM WITH FWW, GB AND 1 ASSIST. WORKED WITH PT. ATTITUDE VERY POSITIVE AND MOTIVATED. DRESSING TO COCCYX CHANGED THIS AFTERNOON, PICS TAKEN YESTERDAY. VSS, ON RA. PAIN WELL CONTROLLED WITH TRAMADOL PRN. CALM AND COOPERATIVE WITH CARE, USES CALL LIGHT APPROPRIATELY FOR ASSISTANCE. CONTINUES TO AWAIT PLACMENT.
--- NOTE | 2021-05-22 04:35 | NUR ---
HRIS ADMINISTRATOR SUMMARY PATIENT HAD A FAIR SHIFT. VITALS CHECKED AND RECORDED AND IT IS STABLE. SHAKY/TREMORS WHILE AWAKE. SHE WAS KEPT COMFORTABLE. WILL CONTINUE TO MONITOR HER.
--- NOTE | 2021-05-22 05:06 | NUR ---
BURR BENCH HAND SUMMARY PATIENT HAD A FAIR SHIFT. HER VITALS CHECKED AND ARE STABLE. PRESSURE WOUND DRESSING CHANGED. SHE HAD HER PAIN MEDICATION SHE NEDDED. OTHERWISE NO OTHER COMPLAINT. WILL CONTINUE TO MONITOR HER.
--- NOTE | 2021-05-22 16:14 | NUR ---
Pt. was in bed but alert. Pt. looks stronger, and shared that her motivation for PT has been heightened since our chaplains visits. Rapport was quickly re-established, and she shared some family history as I facilitated a life review. There are no real signs of anxiety. I listened empathetically, and left her after pastoral prayer. I will continue to monitor and check on her.
--- NOTE | 2021-05-22 16:45 | NUR ---
PATIENT IS ALERT AND ORIENTED AND COOPERATIVE WITH CARE. SHE IS 1PA IN THE ROOM. WORKED WITH PT/OT TODAY. NO NEW CONCERNS. WILL CONTINUE TO MONITOR
--- NOTE | 2021-05-23 05:30 | NUR ---
FRYER LINE HELPER SUMMARY PATIENT HAD A FAIR SHIFT. HER V/S WERE STABLE. SACRAL WOUND DRESSING REMAINED INTACT. SHE GOT HER PAIN MED NEEDED. WILL CONTINUE TO MONITOR HER.
--- NOTE | 2021-05-23 16:59 | NUR ---
PATIENT IS ALERT AND ORIENTED AND COOPERATIVE WITH CARE. C/O PAIN IN HER BUTTOCKS AND LEGS, MEDICATED PER EMAR. NO NEW CONCERNS TODAY. SHE SHOWERED THIS SHIFT. WILL CONTINUE TO MONITOR
--- NOTE | 2021-05-24 04:26 | NUR ---
ADVANCE SEAL DELIVERY SYSTEM MAINTAINER SUMMARY PATIENT HAD A FAIR SHIFT. SHE HAD HER PAIN MED NEEDED. SHE DID NOT LODGE ANY OTHER COMPLAINT. V/S STABLE. WILL CONTINUE TO MONIOTR HER.
--- NOTE | 2021-05-24 17:58 | NUR ---
SHIFT SUMMARY; PATIENT HAD UNEVENTFUL DAY. SHE WORKED WITH PT OT WALKING IN HALLS. WAS EAGER TO PARTICIPATE EVEN HAVING THIS RN CALL TO ASK WHEN THEY WERE COMING. PATIENT ASKS FOR 100MG TRAMADOL 2 X TODAY FOR PAIN OF 9-10 ALL OVER. SHE TAKES HER MEDICATIONS WHOLE WITH WATER WITHOUT DIFF. IS AO X 4 DURING DAY. NADN FROM THIS PATIENT IS ABLE TO MAKE HER NEEDS KNOWN. WAITING FOR PLACEMENT. BAYRON ISSA RN
--- NOTE | 2021-05-24 18:01 | NUR ---
khalida sent to visit with pt
--- NOTE | 2021-05-25 04:41 | NUR ---
PATIENT SLEEP OVER NIGHT. VERBALIZED NO QUESTIONS OR CONCERNS. VITALS REVIEWED WILL CONTINUE TO MONITOR.
--- NOTE | 2021-05-25 17:57 | NUR ---
SHIFT SUMMARY; ANT HAD AN UNEVENTFUL DAY. SHE IS COOPERATIVE WITH CARE. PATIENT HAS GENERALIZED PAIN IN HER LEGS AND BILATERAL LOWER LIMB EDEMA THAT IS WORSE ON THE LEFT. SHE SAYS IT FEELS LIKE HER FEET ARE BURNING. PATIENT IS MEDICATED WITH TRAMADOL X 2 TODAY. SHE HAS NO OTHER COMPLAINTS. REMAINS AO X 4. HAS PLEASANT AFFECT. VITAL SIGNS ARE WNL. LUNGS ARE CLEAR. WILL REMAIN AVAILABLE FOR THIS PATIENT UNTIL SHIFT CHANGE AND HAND OFF TO NOC SHIFT RN. BAYRON ISSA RN
--- NOTE | 2021-05-26 05:08 | NUR ---
A&O X4 WITH SOME FORGETFULNESS. AMBULATES WITH THE ASSOST OF 1 AND WALKER. DECUBITUS ON COCCYX IS HEALED OVER. CLEANED WOUND DSG CDI. 2+ EDEMA TO RLLE. 3+ EDEMA TO LLE. PATIENT AWAITING PLACEMENT.
[2021-05-26 11:53] LABS: Hematocrit 25.2 % (33.0-51.0); Hemoglobin 8.6 g/dL (11.5-16.0)
[2021-05-26 12:14] LABS: Anion Gap 4 mmol/L (6-16); Blood Urea Nitrogen 7 mg/dL (8-24); Bun/Creatinine Ratio 9.3 (12.0-20.0); CO2, Blood 31 mmol/L (21-32); Calcium, Blood 8.7 mg/dL (8.5-10.1); Chloride, Blood 103 mmol/L (98-108); Creatinine, Blood 0.75 mg/dL (0.40-1.00); Glomerular Filtration Rate >60 (60-); Glucose, Blood 121 mg/dL (70-99); Potassium, Blood 3.9 mmol/L (3.5-5.5); Sodium, Blood 138 mmol/L (136-145)
--- NOTE | 2021-05-26 15:06 | NUR ---
Pt. was sitting up and alert. Pt. is demonstrating great progress in both her health, and emotional motivation to strenthen her body through PT and appropriate rest. Facilitated life review, and focused on her ability to reduce stress and trust on what her future holds. Pt. verbalizes a strongth velma in God. Pt. demonstrated clarity in her strategies to improve her health. 20 minutes later I witnessed Pt.in the hallway waiting room resting from a long walk, and encouraged her progress.
--- NOTE | 2021-05-26 18:06 | NUR ---
SHIFT SUMMARY NO ACUTE CHANGES ON MY SHIFT. PT HAS BEEN RESTING COMFORTABLE IN BED AND AMBULATING TO THE BATHROOM WITH ONE PERSON TO ASSIST. TWO SMALL SKIN TEARS ON HER LEFT WRIST WERE BANDAGED UP WITH GAUZE AND COBAN SHE HAS TROUBLE WITH BANDAID ADHESIVE. STILL AWAITING PPLACEMENT TO A SNF. WILL CONTINUE TOT MONITOR.
--- NOTE | 2021-05-27 04:43 | NUR ---
SHIFT SUMMARY PT AOX3 AND VERY PLEASANT THIS SHIFT. PT C/O PAIN IN LEGS AND BETANCOURT AT THE START OF THIS SHIFT. THE PT WAS MEDICATED PER EMAR AND WAS CONCERNED ABOUT DRESSING STILL BEING INTACT ON BUTTOCKS. THIS NURSE CHECKED MULTIPLE TIMES AND ENSURED THE PT THE DRESSING WAS STILL IN PLACE. THE PT RESTED WELL AND CURRENTLY STILL ASLEEP WITH RISE AND FALL OF CHEST. WILL CONTINUE TO MONITOR UNTIL REPORT IS GIVEN.
--- NOTE | 2021-05-27 17:31 | NUR ---
SHIFT SUMMARY PT AXO, PLEASANT AND COOPERATIVE WITH CARE. NO ACUTE CHANGES THIS SHIFT. PT UP WITH 1 ASSIST. PT DENIES SOB AND N/V. MEDICATED FOR PAIN PER EMAR. BED IN LOW POSITION, CALL LIGHT WITHIN REACH.
--- NOTE | 2021-05-28 05:03 | NUR ---
APTIENT HAD AN UNEVENTFUL NIGHT. PATIENT REPORTED A GROUP OF BRIGHT RED LESION ON HER LFA. CLEANSED AND COVERED WITH BANDAIDS PICTURES IN CHART. PATIENT REPORTS WOKING WITH PT AND BEING ABLE TO SIT TO STAND ON HER OWN. RLE HAS 3+ EDEMA. LLE HAS 2+ EDEMA. PATIENT REPORTS PAIN FOR WHICH PRN PAIN MEDICATION WAS GIVEN. VITALS REVIEWED. CALL LIGHT IN REACH BED IN LOWEST POSITON.
--- NOTE | 2021-05-28 18:42 | NUR ---
PT AAOX4 ABLE TO MAKE NEEDS KNOWN. COMPLIANT OT MEDICATION REGIMEN. PT HAS BRP, AMBULATES WITH WALKER. STAFF PROVIDED ASSISTANCE HAS NEEDED. PT C/O PAIN TO LOWER TORSO MEDIACTED WITH EFFECTIVE OUTCOMES. GOOD APPETITE NOTED ATE 100% OF MEALS. DRESSING DONE TO BUTTOCKS AND AREA. BED IN LOWERST POSITION. CALL LIGHT IN REACH.
--- NOTE | 2021-05-29 05:05 | NUR ---
PT IS A/OX4. SHE IS NOT CURRENTLY ON TELE, NO OXYGEN, AND NO IV. SHE HAS ULTRAM Q6 FOR PAIN AND CALLS APPROPRIATELY. SHE WILL BE A PLACEMENT. NO NEW CHANGES TO REPORT.
--- NOTE | 2021-05-29 14:12 | NUR ---
Pt. was alert and sitting up in her chair. Pt. welcome my visit. facilitated an update from the pt. regarding her prognosis. Pt. di demonstrate some unsettledness in the lack of phys. therapy she had been receiving. I attempted to normalize pts. expectations, and pt. responded with increased understanding an patience. Pt. verbalized hope in her upcoming discharge. Pt. verbalizes gratitude and increased resolve to improve her health. She has clearly been making progress. Prayed with pt.
[2021-05-30 05:03] LABS: BASOPHILS ABSOLUTE AUTO 0.13 K/mm3 (0.00-0.23); BASOPHILS PERCENT AUTO 1 % (0-2); EOSINOPHILS ABSOLUTE AUTO 0.49 K/mm3 (0.00-0.68); EOSINOPHILS PERCENT AUTO 3 % (0-6); Hematocrit 23.7 % (33.0-51.0); Hemoglobin 8.2 g/dL (11.5-16.0); Mean Corpuscular HGB 36.9 pg (26.0-34.0); Mean Corpuscular HGB Conc 34.6 g/dL (31.5-36.5); Mean Corpuscular Volume 107 fL (80-100); Mean Platelet Volume 9.8 fL (9.1-12.4); Platelet Count 375 K/mm3 (150-400); RDW Coefficient Variation 15.2 % (11.7-14.2); RDW Standard Deviation 59.8 fL (35.1-46.3); Red Blood Cell Count 2.22 M/mm3 (3.80-5.20); White Blood Cell Count 16.76 K/mm3 (4.00-11.30)
[2021-05-30 05:05] LABS: IMMATURE GRAN ABSOLUTE AUTO 0.06 K/mm3 (0.00-0.10); IMMATURE GRAN PERCENT AUTO 0 % (0-1); LYMPHOCYTES ABSOLUTE AUTO 3.77 K/mm3 (0.84-5.20); LYMPHOCYTES PERCENT AUTO 23 % (21-46); MONOCYTES ABSOLUTE AUTO 2.15 K/mm3 (0.16-1.47); MONOCYTES PERCENT AUTO 13 % (4-13); NEUTROPHILS ABSOLUTE AUTO 10.16 K/mm3 (1.96-9.15); NEUTROPHILS PERCENT AUTO 61 % (41-73)
[2021-05-30 05:28] LABS: BASOPHILS ABSOLUTE MAN 0.16 K/mm3 (0.00-0.23); BASOPHILS PERCENT MAN 1 % (0-2); EOSINOPHILS ABSOLUTE MAN 0.33 K/mm3 (0.00-0.68); EOSINOPHILS PERCENT MAN 2 % (0-6); LYMPHOCYTES ABSOLUTE MAN 3.01 K/mm3 (0.84-5.20); LYMPHOCYTES PERCENT MAN 18 % (21-46); MONOCYTES ABSOLUTE MAN 2.01 K/mm3 (0.16-1.47); MONOCYTES PERCENT MAN 12 % (4-13); NEUTROPHILS ABSOLUTE MAN 11.22 K/mm3 (1.96-9.15); SEG NEUTROPHILS PERCENT MAN 67 % (41-73); TOTAL CELLS COUNTED 100
[2021-05-30 05:59] LABS: Alanine Aminotransfer (ALT/SGP 20 U/L (12-78); Albumin, Blood 1.6 g/dL (3.4-5.0); Albumin/Globulin Ratio 0.4 (0.8-1.8); Alk Phos 429 U/L (50-136); Anion Gap 8 mmol/L (6-16); Aspartate Aminotrans (AST/SGOT 63 U/L (12-37); Blood Urea Nitrogen 8 mg/dL (8-24); Bun/Creatinine Ratio 11.8 (12.0-20.0); CO2, Blood 26 mmol/L (21-32); Calcium, Blood 8.9 mg/dL (8.5-10.1); Chloride, Blood 107 mmol/L (98-108); Creatinine, Blood 0.68 mg/dL (0.40-1.00); Globulin, Blood 4.5 g/dL (2.2-4.0); Glomerular Filtration Rate >60 (60-); Glucose, Blood 86 mg/dL (70-99); Sodium, Blood 141 mmol/L (136-145); Total Protein, Blood 6.1 g/dL (6.4-8.2)
--- NOTE | 2021-05-30 06:03 | NUR ---
PT IS A/OX4. THE PT WAS MORE PAINFUL THIS SHIFT REQUIRING ULTRAM X2. OTHERWISE SHE HAD NO NEW CHANGES DURING THIS NOC SHIFT.
--- NOTE | 2021-05-31 05:19 | NUR ---
PATIENT WAS ALERT AND ORIENTED X3, STABLE VITAL SIGNS, NO ACUTE CHANGES, PATIENT COMPLAINED OF PAIN AND WAS TREATED FOR IT. PATIENT SLEPT FOR MOST OF THE NIGHT. CALL LIGHT WITH IN REACH, BED TO THE LOWEST POSITION. WILL CONTINUE TO MONITOR TILL HAND OFF.
--- NOTE | 2021-05-31 05:24 | NUR ---
PATIENT WAS ALERT AND ORIENTED X4, STABLE VITAL SIGNS, NO ACUTE CHANGES. PATIENT DENIES ANY PAIN. PATIENT SLEPT THROUGH THE NIGHT, AWAITING PLACEMENT FOR SKILLED FACILITY. CALL LIGHT WITH IN REACH, BED TO THE LOWEST POSITION.WILL CONTINUE TO MONITOT UNTIL HAND OFF.
--- NOTE | 2021-05-31 18:06 | NUR ---
PT AAOX 4, ABLE TO MAKE NEEDS KNOWN. COMPLIANT TO MEDICATION REGIMEN, HAS BRP WITH STAND BY ASSIST. DRESSING DONT T LEFT BUTTOCKS AND LEFT ARM INTACT, CLEAN AND DRY. NO COMPLAINTS VOICED. BED IN LOWEST POSITION. CALL LIGHT IN REACH.
--- NOTE | 2021-06-01 03:34 | NUR ---
SHIFT SUMMARY PATIENT HAD NO ACUTE CHANGES OBSERVED. AXOX 4 AND SBA TO BR. NO IV ACCESS. REPORTED HIP AND KNEE/FEET PAIN. ULTRAM 100 MG GIVEN PER EMAR. DENIES SOB AND N/V. PATIENT REPORTS LIKES STAYING UP THE FIRST HALF OF THE SHIFT. COOPERATIVE WITH CARE. CALL LIGHT IN REACH. BED IN LOWEST POSITION. WILL CONTINUE TO MONITOR UNTIL DAY SHIFT NURSE ASSUMES CARE.
--- NOTE | 2021-06-01 15:41 | NUR ---
SHIFT SUMMARY PT AWAITING PLACEMENT. PT SHOWERED TODAY. BANDAGES ON L ARM REPLACED & WOUNDS CLEANED. NO OTHER ACUTE CHANGES IN ASSESSMENT AT THIS TIME. VS REVIEWED. PT UP IN RECLINER WATCHING TV. CALL LIGHT IN REACH.
--- NOTE | 2021-06-02 06:12 | NUR ---
Rn summary: Patient is alert and oriented. Pt did c/o a headache at the beginning of shift. Tylenol 650 mg effective for relief. Pt later c/o hurting basically from her hips to her feet. Medicated with tramadol 100mg. Mepilex to coccyx removed, wound cleaned and drsg reapplied. Wound is on left side of buttocks, yellow /roe drainage. Pt was able to sleep after midnight. Up to BSC independantly with good urine output. Call light in reach, Pt able to make needs known. Waiting on placement.
--- NOTE | 2021-06-02 16:27 | NUR ---
SHIFT SUMMARY PATIENT DENIES PAIN, NAUSEA, AND SHORTNESS OF RBEATH. UP INDEPENDENT TO BATHROOM. FOAM DRESSING TO LEFT BUTTOCK CHANGED AND WOUND CLEANED. EATING AND DRINKING WELL. PLEASANT AND COOPERATIVE WITH CARE.
--- NOTE | 2021-06-03 06:01 | NUR ---
MANDI HAD A GOOD NIGHT. MODERATE COMPLAINTS OF CHRONIC BACK AND LEG PAIN WERE RESOLVED WITH TWO TRAMADOL AND TWO TYLENOL SHE WAS OTHERWISE COMFORTABLE AND INDEPENDENT IN HER ROOM. LOOKING FORWARD TO DISCHARGE.
--- NOTE | 2021-06-03 12:35 | NUR ---
Pt. was alert and sitting up in bed. Pt. welcomed my visit. Rapport was quickly re-established. Pt. was optimistic but somewhat unsettled by a slow discharge process. Listened empathetically. Normalized the patient's experience. Explored the encouragement of her velma by specific gifts she received over . She spoke of the generous food that was prepared for pts. on and was thankful. I prayed with pt. and will continue to monitor.
--- NOTE | 2021-06-03 16:10 | NUR ---
SHIFT SUMMARY PATIENT MEDICATED X1 FOR PAIN, DENIES NAUSEA AND SHORTNESS OF BREATH. WORKED WITH PT, UP INDEPENDENT TO BATHROOM. LEFT BUTTOCK WOUND CLEANSED AND DRESSING REPLACED. PLEASANT AND COOPERATIVE WITH CARE.
--- NOTE | 2021-06-04 07:00 | NUR ---
SHIFT SUMMARY ASSUMED CARE AT 1900. NO ACUTE EVENTS OVERNIGHT. PT PLEASANT AND COOPERATIVE. MEDICATED FPR PAIN ONCE OVERNIGHT WITH GOOD EFFECT. DRESSING TO LEFT FOREARM AND BUTTOCK IS INTACT. VITALS STABLE DURING SHIFT. BED IS IN LOW POSITION WITH THE CALL LIGHT WITHIN EASY REACH. WILL CONTINUE TO MONITOR.
--- NOTE | 2021-06-04 16:51 | NUR ---
SHIFT SUMMARY PT AWAITING PLACEMENT. BANDAGE TO SACRUM CLEANED & REPLACED. NEW PICTURE OBTAINED. PT AMBULATED THE HALLWAY AND HAS BEEN IND IN ROOM MOST THE DAY. CALL LIGHT IN REACH. NO OTHER ACUTE CHANGES IN ASSESSMENT AT THIS TIME. VS REVIEWED. PT DENIES ANY NEEDS AT THIS TIME.
--- NOTE | 2021-06-04 18:49 | NUR ---
Pt. was alert and sitting up. Pt. was encouraged about physical progress, but unsettled about prospects of discharge. Listened empathetically. Pt. displayed understanding and trust. Prayed with pt. and she verbalized gratitude for her care and my visit. I will monitor.
--- NOTE | 2021-06-05 06:26 | NUR ---
SHIFT SUMMARY ASSUMED CARE AT 1900. NO ACUTE EVENTS OVERNIGHT. PT RESTED WELL. MEDICATES WITH PRN PAIN MEDICATIONS WITH GOOD EFFECT. DRESSING TO SACRUM INTACT. LEFT FOREARM SKIN TEAR HEALED. RASH UNDER BILATERAL BREASTS RESOLVED. EDEMA NOTED TO BLEs-THEY ARE ELEVATED ON PILLOWS. BED IS IN LOW POSITION WITH THE CALL LIGHT WITHIN EASY REACH. PT ABLE TO VERBALIZE HER NEEDS. WILL CONTINUE TO MONITOR.
--- NOTE | 2021-06-05 17:52 | NUR ---
PT A/O X4. VSS. PATIENT REPORTED PAIN FOR SHIFT THAT WAS TREATED WITH PRN MED PER EMAR. PT AMBULATES WELL TO THE BATHROOM. NO ACUTE CHANGES. SACRUM WOUND CLEANED AND DRESSING CHANGED.PT IS PLEASANT AND COOPEARTIVE WITH CARE. CALL LIGHT WITHIN REACH, BED LOWEST POSITION. WILL CONTINUE TO MONITOR
--- NOTE | 2021-06-06 05:55 | NUR ---
SHIFT SUMMARY ASSUMED CARE AT 1900. NO ACUTE EVENTS OVERNIGHT. PT MEDICATED FOR C/O PAIN PER EMAR WITH GOOD RESULTS. VITAL SIGNS WNL. DRESSIG TO SACRUM REMAINS INTACT. BED REMAINS IN LOW POSITION WITH THE CALL LIGHT WITHIN EASY REACH. WILL CONTINUE TO MONITOR.
--- NOTE | 2021-06-06 20:14 | NUR ---
NO CHANGES NOTED FOR SHIFT. PT AMBULATES WELL TO THE BATHROOM. TREATED PAIN PER EMAR. VSS. REPORT GIVEN TO PROFILE SAW OPERATOR NURSE.
--- NOTE | 2021-06-07 07:05 | NUR ---
SHIFT SUMMARY ASSUMED CARE AT 1900. AAOX3. I MEDICATED THE PT FOR PAIN THIS MORNING WITH GOOD EFFECT. NO OTHER COMPLAINTS VOICED DURING THE SHIFT. SCHEDULED MEDICATIONS ADMINISTERED DURING THE SHIFT. HAD EPISODE OF ASYMPTOMATIC HYPOTENSION THAT IMPROVED WITHOUT INTERVENTION WHEN RECHECKED. BED IS IN LOW POSITION WITH THE CALL LIGHT WITHIN EASY REACH. WILL CONTINUE TO MONITOR.
--- NOTE | 2021-06-07 16:39 | NUR ---
PT A/O X4. MEDICATED PT WITH TRAMADOL FOR REPORTED PAIN LEVEL OF 5-6 TO LEFT BUTTOCK AND KNEE. SACRUM WOUND CLEANED AND DRESSING CHANGED. NO ACUTE CHANGES FROM SHIFT ASSESSMENT.WILL CONTINUE TO MONITOR
--- NOTE | 2021-06-08 07:27 | NUR ---
SHIFT SUMMARY ASSUMED CARE AT 1900. NO ACUTE EVENTS OVERNIGHT. PT MEDICATED PRN FOR C/O PAIN WITH GOOD EFFECT. DRESSING TO SACRUM IS CLEAN, DRY AND INTACT. SCHEDULED MEDICATIONS ADMINISTERED. BED IS IN LOW POSITION WITH THE CALL LIGHT WITHIN EASY REACH. WILL CONTINUE TO MONITOR.
--- NOTE | 2021-06-08 16:07 | NUR ---
65 YEAR OLD FEMALE, PLEASANT AND COOPERATIVE WITH CARE. AWAITING PLACEMENT. ORDER FOR NO IV. PT HAS BEEN EXPERIENCING VERTIGO WHEN SHE TRIES TO WALK OUTSIDE HER ROOM, MD AWARE. INDEPENDENT IN ROOM. OPEN WOUND/STAGE 2 ULCER TO SACRAL/LT BUTTOCK AREA, AREA CLEANED AND FOAM DRESSING CHANGED. PT IS DNR AND ON RA. CALL LIGHT WITH REACH OF PT.
--- NOTE | 2021-06-09 04:27 | NUR ---
SHIFT SUMMARY: PATIENT A&OX4, NO ADNETITOUS HEART SOUNDS, LCTA, WOUND TO COCCYX DRESISNG CDI, PATIENT HAS FRESH SKIN TEAR TO LEFT FOREARM, CLEANSED AND DRESSED. BOWEL TONES ACTIVE X 4 QUADRANTS REPORTS 2 BM ON NOC.
[2021-06-09 05:25] LABS: Hematocrit 25.7 % (33.0-51.0); Hemoglobin 8.8 g/dL (11.5-16.0); Mean Corpuscular HGB 36.1 pg (26.0-34.0); Mean Corpuscular HGB Conc 34.2 g/dL (31.5-36.5); Mean Corpuscular Volume 105 fL (80-100); Mean Platelet Volume 9.3 fL (9.1-12.4); Platelet Count 405 K/mm3 (150-400); RDW Coefficient Variation 14.4 % (11.7-14.2); RDW Standard Deviation 55.4 fL (35.1-46.3); Red Blood Cell Count 2.44 M/mm3 (3.80-5.20); White Blood Cell Count 7.63 K/mm3 (4.00-11.30)
[2021-06-09 06:09] LABS: Alanine Aminotransfer (ALT/SGP 23 U/L (12-78); Albumin, Blood 1.9 g/dL (3.4-5.0); Albumin/Globulin Ratio 0.4 (0.8-1.8); Alk Phos 376 U/L (50-136); Anion Gap 6 mmol/L (6-16); Aspartate Aminotrans (AST/SGOT 63 U/L (12-37); Bilirubin, Total 1.3 mg/dL (0.1-1.0); Blood Urea Nitrogen 11 mg/dL (8-24); Bun/Creatinine Ratio 17.5 (12.0-20.0); CO2, Blood 26 mmol/L (21-32); Calcium, Blood 9.3 mg/dL (8.5-10.1); Chloride, Blood 108 mmol/L (98-108); Creatinine, Blood 0.63 mg/dL (0.40-1.00); Globulin, Blood 4.4 g/dL (2.2-4.0); Glomerular Filtration Rate >60 (60-); Glucose, Blood 83 mg/dL (70-99); Potassium, Blood 4.2 mmol/L (3.5-5.5); Sodium, Blood 140 mmol/L (136-145); Total Protein, Blood 6.3 g/dL (6.4-8.2)
--- NOTE | 2021-06-09 18:44 | NUR ---
SHIFT SUMMARY: PT A/O X 4 IND IN ROOM. PLEASANT AND COOPERATIVE WITH CARE. WOUND CARE COMPLETED TO BOTTOM. WOUND HAS NO SIGNS OF INFECTION AND WOUND BED IS COMPLETELY FILLED WITH GRANULATION TISSUE. SMALL AMOUNT OF HOLLINS COLORED DRAINAGE. PT PAIN MANAGED WITH ULTRAM. PT AMBULATED AROUND UNIT TODAY WITH WALKER/GAIT BELT STANDBY ASSISTANCE REQUIRED. SHE DID HAVE EPISODES OF DIZZINESS WAS WORSE WHEN CHANGING DIRECTION, STATED SHE FELT LIKE THE "ROOM WAS TILTING." PT WAS ABLE TO RECOVER QUICKLY.
--- NOTE | 2021-06-10 03:29 | NUR ---
SHIFT SUMMARY: A&OX4, NO ADVENTIOUS HEART SOUNDS, LCTA E/U RESP, PATIENT REPORTS MULTIPLE BM LAST FEW WERE LOOSE, HELP COLACE. DRESISNG TO COCCYX AND ARM CDI. TYLENOL AND TRAMADOL GIVEN FOR PAIN, PATIENT REPORTS ADEQUATE RELIEF.
--- NOTE | 2021-06-10 12:43 | NUR ---
Spiritual Care visit. Pt. was alert and sitting up in bed. Pt. has made real progress in her health, but has become increasingly unsettled about her prospects of discharge and placement. Provided a calming presence. Pt. demonstrated gratitude for the work done a doctor to try and help her find a place to live. Explored sources of purpose and dignity. Pt. displayed evidence of catharsis, and reduced stress. Prayed with Pt. Pt. verbalized gratitude for acknowleging her worth, and being seen as valuable. I will monitor.
--- NOTE | 2021-06-10 18:45 | NUR ---
SHIFT SUMMARY PT AAOX4. AMBULATES AROUND ROOM AND IN HALLS WITH NO ISSUES. DID WORK WITH PT ON TODAY. VSS. NAD NOTED. NO IV ACCESS. DID C/O HEADACHE AND MEDICATED WITH TYLENOL IN AM. C/O SACRUM PAIN IN PM AND MEDICATED WITH TRAMADOL. DRESSING TO SACRUM CHANGED AND NEW PLACED. NO OTHER C/O DISCOMFORT, N/V, OR SOB VOICED. WILL CONTINUE TO MONITOR IN CARE.
--- NOTE | 2021-06-11 06:29 | NUR ---
SHIFT SUMMARY PT IS AA0X4. PT VERY PLEASANT AND COOPERATIVE WITH CARE. NO ACUTE CHANGES OVERNIGHT.NO COMPLAINTS OF PAIN OR SOB. VSS REVIEWED . ALL MEDS GIVEN A PER EMAR. PT IS RESTING COMFORTABLY AT THIS TIME . BED IN LOWER POSITION AND CALL LIGHTIN EASY REACH. WILL CONTINUE TO MONITOR.
[2021-06-11] MEDS ORDERED: ACET325 PO (14:01)
[2021-06-11] MEDS ORDERED: DOCUZEN 8.6-501 EACH PO (14:01)
[2021-06-11] MEDS ORDERED: EUTHYROX50 MCG PO (14:02)
[2021-06-11] MEDS ORDERED: FOLI1 PO (14:02)
[2021-06-11] MEDS ORDERED: MIRT15ST PO (14:03)
[2021-06-11] MEDS ORDERED: ANTIFUNGAL POWD71 GM TOP (14:03)
[2021-06-11] MEDS ORDERED: TRAM50 PO (14:04)
[2021-06-11] MEDS ORDERED: B-1100 M1 PO (14:04)
[2021-06-11] MEDS ORDERED: MIRALAX17 GM PO (14:04)
[2021-06-11] MEDS ORDERED: THERA-D2000 UNIT PO (14:05)
--- NOTE | 2021-06-11 19:51 | NUR ---
PT DISCHARGED 1540 WITH DISCHARGE ORDERS. RX FAXED TO [facility]. TAXI VOUCHER FOR PT TO GO TO SHOE DRESSER RX THAN TO [facility]. PT SENT WITH 5 BAGS OF BELINGINGS. DRESSING TO BUTTOCK CHANGED AND INSTRUCTIONS AND SUPPLY GIVEN TO PT.
== END 2021-06-11 15:42 | disposition home or self-care (01) | DRG 871 ==
LOC: ER 15:46 → MEDS 18:19
PROVIDERS: Internal Medicine; Pharmacist; Physician Assistant; ADMIT Internal Medicine
DX: A41.51 Sepsis due to Escherichia coli [E. coli] (principal); R65.21 Severe sepsis with septic shock; G92.8 Other toxic encephalopathy; E87.2 Acidosis; N39.0 Urinary tract infection, site not specified; Z66 Do not resuscitate; F10.10 Alcohol abuse, uncomplicated; K70.31 Alcoholic cirrhosis of liver with ascites; E88.09 Other disorders of plasma-protein metabolism, not elsewhere classified; E16.2 Hypoglycemia, unspecified; L30.4 Erythema intertrigo; G47.00 Insomnia, unspecified; M54.9 Dorsalgia, unspecified; D86.9 Sarcoidosis, unspecified; L89.152 Pressure ulcer of sacral region, stage 2; E03.9 Hypothyroidism, unspecified; D47.2 Monoclonal gammopathy; M19.90 Unspecified osteoarthritis, unspecified site; D63.8 Anemia in other chronic diseases classified elsewhere; G89.29 Other chronic pain; Z88.0 Allergy status to penicillin; Z88.2 Allergy status to sulfonamides; Z59.00 Homelessness unspecified; Z71.41 Alcohol abuse counseling and surveillance of alcoholic; Z88.8 Allergy status to other drugs, medicaments and biological substances; Z90.89 Acquired absence of other organs; Z98.51 Tubal ligation status; Z90.710 Acquired absence of both cervix and uterus; Z85.07 Personal history of malignant neoplasm of pancreas; Z28.21 Immunization not carried out because of patient refusal
CPT/HCPCS: 36415; 71045; 74177; 76705; 80048; 80053; 80076; 80202; 81001; 82105; 82378; 82550; 82553; 82565; 82607; 82728; 82746; 83540; 83550; 83605; 83690; 83735; 83880; 84145; 84443; 85014; 85018; 85025; 85027; 85610; 86301; 87040; 87077; 87086; 87186; 93005; 93010; 97110; 97112; 97116; 97162; 97164; 97166; 97530; 97535; 99285-25; A9270; J0456; J0696; J1650; J1885; J1940; J2270; J2405; J3370; J7030; J7042; J7050; Q9967

== ENCOUNTER → 2021-06-28 | Outpatient (CLI) | payer OTHER ==
[~2021-06-28] MED LIST: ACET325 PO; ANTIFUNGAL POWD71 GM TOP; B-1100 M1 PO; DOCUZEN 8.6-501 EACH PO; EUTHYROX50 MCG PO; FOLI1 PO; MIRALAX17 GM PO; MIRT15ST PO; THERA-D2000 UNIT PO; TRAM50 PO
[2021-06-28 13:54] LABS: BASOPHILS ABSOLUTE AUTO 0.07 K/mm3 (0.00-0.23); BASOPHILS PERCENT AUTO 1 % (0-2); EOSINOPHILS ABSOLUTE AUTO 0.18 K/mm3 (0.00-0.68); EOSINOPHILS PERCENT AUTO 3 % (0-6); Hematocrit 31.8 % (33.0-51.0); Hemoglobin 10.7 g/dL (11.5-16.0); IMMATURE GRAN ABSOLUTE AUTO 0.01 K/mm3 (0.00-0.10); IMMATURE GRAN PERCENT AUTO 0 % (0-1); LYMPHOCYTES ABSOLUTE AUTO 2.52 K/mm3 (0.84-5.20); LYMPHOCYTES PERCENT AUTO 43 % (21-46); MONOCYTES ABSOLUTE AUTO 1.23 K/mm3 (0.16-1.47); MONOCYTES PERCENT AUTO 21 % (4-13); Mean Corpuscular HGB 35.5 pg (26.0-34.0); Mean Corpuscular HGB Conc 33.6 g/dL (31.5-36.5); Mean Corpuscular Volume 106 fL (80-100); NEUTROPHILS ABSOLUTE AUTO 1.81 K/mm3 (1.96-9.15); NEUTROPHILS PERCENT AUTO 31 % (41-73); Platelet Count 267 K/mm3 (150-400); RDW Coefficient Variation 14.6 % (11.7-14.2); RDW Standard Deviation 55.9 fL (35.1-46.3); Red Blood Cell Count 3.01 M/mm3 (3.80-5.20); White Blood Cell Count 5.82 K/mm3 (4.00-11.30)
== END ==
LOC: LAB SHORT 13:49
PROVIDERS: Family Medicine
DX: D64.9 Anemia, unspecified (principal)
CPT/HCPCS: 85025

== ENCOUNTER → 2022-08-04 | Outpatient (CLI) | payer OTHER | LOC: LAB 14:20 → LAB SHORT 14:20 | DX: R30.0 Dysuria (principal) | CPT/HCPCS: 87077; 87086; 87186 ==

== ENCOUNTER 2022-11-14 13:35 | Inpatient (IN) | payer OTHER ==
[~2022-11-14] VITALS: Ht 172.7 cm; Wt 56.2 kg
[2022-11-14] MEDS ORDERED: TOPI25 PO (13:55)
[2022-11-14] MEDS ORDERED: IBUP400 (13:55)
[2022-11-14] MEDS ORDERED: FURO20 PO (13:55)
[2022-11-14] MEDS ORDERED: POTA10T PO (13:55)
[2022-11-14] MEDS ORDERED: Prednisone10 MG (13:56)
[2022-11-14 13:58] LABS: Base Excess Venous 1.2 mmol/L; Bicarbonate Venous 24.9 mmol/L (24.0-30.0); PCO2 Venous 45.5 mmHg (38-42); pH Blood Venous 7.37 (7.34-7.37)
[2022-11-14 14:01] LABS: BASOPHILS ABSOLUTE AUTO 0.09 K/mm3 (0.00-0.23); BASOPHILS PERCENT AUTO 1 % (0-2); EOSINOPHILS ABSOLUTE AUTO 0.05 K/mm3 (0.00-0.68); EOSINOPHILS PERCENT AUTO 0 % (0-6); Hematocrit 44.5 % (33.0-51.0); Hemoglobin 14.9 g/dL (11.5-16.0); IMMATURE GRAN ABSOLUTE AUTO 0.07 K/mm3 (0.00-0.10); IMMATURE GRAN PERCENT AUTO 0 % (0-1); LYMPHOCYTES ABSOLUTE AUTO 1.75 K/mm3 (0.84-5.20); LYMPHOCYTES PERCENT AUTO 10 % (21-46); MONOCYTES ABSOLUTE AUTO 1.74 K/mm3 (0.16-1.47); MONOCYTES PERCENT AUTO 10 % (4-13); Mean Corpuscular HGB 34.4 pg (26.0-34.0); Mean Corpuscular HGB Conc 33.5 g/dL (31.5-36.5); Mean Corpuscular Volume 103 fL (80-100); Mean Platelet Volume 9.5 fL (9.1-12.4); NEUTROPHILS ABSOLUTE AUTO 14.21 K/mm3 (1.96-9.15); NEUTROPHILS PERCENT AUTO 79 % (41-73); Platelet Count 386 K/mm3 (150-400); RDW Coefficient Variation 13.7 % (11.7-14.2); RDW Standard Deviation 52.8 fL (35.1-46.3); Red Blood Cell Count 4.33 M/mm3 (3.80-5.20); White Blood Cell Count 17.91 K/mm3 (4.00-11.30)
[2022-11-14 14:10] LABS: Albumin, Blood 2.9 g/dL (3.4-5.0); Albumin/Globulin Ratio 0.5 (0.8-1.8); Bilirubin, Total 0.9 mg/dL (0.1-1.0); Bun/Creatinine Ratio 25.7 (12.0-20.0); Calcium, Blood 9.9 mg/dL (8.5-10.1); Creatinine, Blood 0.94 mg/dL (0.40-1.00); Globulin, Blood 5.7 g/dL (2.2-4.0); Total Protein, Blood 8.6 g/dL (6.4-8.2)
[2022-11-14 19:25] LABS: Influenza A, PCR NEGATIVE (NEGATIVE); Influenza B, PCR NEGATIVE (NEGATIVE); Resp Syncytial Virus, PCR NEGATIVE (NEGATIVE); SARS-Cov-2 (COVID-19) PCR, MMC NEGATIVE (NEGATIVE)
[2022-11-14 21:07] VITALS: BP 128/65
[2022-11-15 02:20] VITALS: BP 124/58
--- NOTE | 2022-11-15 04:35 | NUR ---
LOSS PREVENTION SPECIALIST SUMMAR/NEW ADMIT ADMIT W/COPD EXAC. A/OX4. ABLE TO MAKE NEEDS KNOWN. ORIENTED TO ROOM AND CALL LIGHT. ON 4L O2 NC. EPISODES OF COUGHING T/O THE NIGHT. REQUESTED BREATHING TREATMENT AND PROVIDED FLUTTER VALVE. SOB WITH ACTIVITY. PT AMBULATING INDEPENDENTLY AT HOME; DISCUSSED FALL SAFETY; REQ PT TO CALL FOR SBA TO BATHROOM. PT HAS STRESS INCONTINENCE; INDEPENDENT WITH NAEL CARE.
[2022-11-15 05:42] LABS: BASOPHILS ABSOLUTE AUTO 0.01 K/mm3 (0.00-0.23); BASOPHILS PERCENT AUTO 0 % (0-2); EOSINOPHILS PERCENT AUTO 0 % (0-6); Hematocrit 39.4 % (33.0-51.0); Hemoglobin 13.3 g/dL (11.5-16.0); IMMATURE GRAN ABSOLUTE AUTO 0.07 K/mm3 (0.00-0.10); IMMATURE GRAN PERCENT AUTO 1 % (0-1); LYMPHOCYTES ABSOLUTE AUTO 1.24 K/mm3 (0.84-5.20); LYMPHOCYTES PERCENT AUTO 9 % (21-46); MONOCYTES ABSOLUTE AUTO 1.61 K/mm3 (0.16-1.47); MONOCYTES PERCENT AUTO 12 % (4-13); Mean Corpuscular HGB 34.5 pg (26.0-34.0); Mean Corpuscular HGB Conc 33.8 g/dL (31.5-36.5); Mean Corpuscular Volume 102 fL (80-100); Mean Platelet Volume 9.7 fL (9.1-12.4); NEUTROPHILS ABSOLUTE AUTO 10.45 K/mm3 (1.96-9.15); NEUTROPHILS PERCENT AUTO 78 % (41-73); Platelet Count 326 K/mm3 (150-400); RDW Coefficient Variation 13.6 % (11.7-14.2); RDW Standard Deviation 51.5 fL (35.1-46.3); Red Blood Cell Count 3.86 M/mm3 (3.80-5.20); White Blood Cell Count 13.38 K/mm3 (4.00-11.30)
[2022-11-15 06:11] LABS: Albumin, Blood 2.6 g/dL (3.4-5.0); Albumin/Globulin Ratio 0.5 (0.8-1.8); Bilirubin, Total 0.4 mg/dL (0.1-1.0); Bun/Creatinine Ratio 27.5 (12.0-20.0); Creatinine, Blood 1.02 mg/dL (0.40-1.00); Globulin, Blood 4.9 g/dL (2.2-4.0); Potassium, Blood 4.1 mmol/L (3.5-5.5); Total Protein, Blood 7.5 g/dL (6.4-8.2)
[2022-11-15 07:27] VITALS: BP 133/67
--- NOTE | 2022-11-15 10:36 | NUR ---
ADVISED GRAM + COCCI SPUTUM, PRELIM REPORT
[2022-11-15 15:05] VITALS: BP 123/59
--- NOTE | 2022-11-15 18:32 | NUR ---
PT PLEASANT AND COOP TODAY. COUGH IMPROVED SOME WITH THE MUCINEX. ABX PRESENTLY RUNNING. PT AMBULATES BATHROOM IND WITH FWW. PT STATES FEELING SOME BETTER. PAIN MANAGED WITH AVAIL MEDS. O2 DOWN TO 3L TODAY. NO NEW CONCERNS NOTED. BED IN LOW POSITION, CALL LITE IN REACH, CALLS APROP
[2022-11-15 19:15] VITALS: BP 124/65
[2022-11-16 01:46] VITALS: BP 124/57
[2022-11-16 05:25] LABS: BASOPHILS ABSOLUTE AUTO 0.01 K/mm3 (0.00-0.23); BASOPHILS PERCENT AUTO 0 % (0-2); EOSINOPHILS PERCENT AUTO 0 % (0-6); Hematocrit 42.3 % (33.0-51.0); Hemoglobin 14.2 g/dL (11.5-16.0); IMMATURE GRAN ABSOLUTE AUTO 0.07 K/mm3 (0.00-0.10); IMMATURE GRAN PERCENT AUTO 1 % (0-1); LYMPHOCYTES ABSOLUTE AUTO 0.86 K/mm3 (0.84-5.20); LYMPHOCYTES PERCENT AUTO 9 % (21-46); MONOCYTES ABSOLUTE AUTO 0.21 K/mm3 (0.16-1.47); MONOCYTES PERCENT AUTO 2 % (4-13); Mean Corpuscular HGB Conc 33.6 g/dL (31.5-36.5); Mean Corpuscular Volume 101 fL (80-100); Mean Platelet Volume 9.4 fL (9.1-12.4); NEUTROPHILS ABSOLUTE AUTO 8.07 K/mm3 (1.96-9.15); NEUTROPHILS PERCENT AUTO 88 % (41-73); Platelet Count 364 K/mm3 (150-400); RDW Coefficient Variation 13.3 % (11.7-14.2); RDW Standard Deviation 49.6 fL (35.1-46.3); Red Blood Cell Count 4.18 M/mm3 (3.80-5.20); White Blood Cell Count 9.22 K/mm3 (4.00-11.30)
[2022-11-16 05:49] LABS: Bun/Creatinine Ratio 23.2 (12.0-20.0); Calcium, Blood 9.5 mg/dL (8.5-10.1); Creatinine, Blood 0.86 mg/dL (0.40-1.00); Potassium, Blood 4.6 mmol/L (3.5-5.5)
[2022-11-16 07:06] VITALS: BP 121/67
--- NOTE | 2022-11-16 08:09 | NUR ---
SUMMARY PT WITH PROD COUGH, BUT SWALLOWS. NO RESP DISTRESS. REMAINS ON 02 N/C.
[2022-11-16 15:08] VITALS: BP 133/73
--- NOTE | 2022-11-16 18:41 | NUR ---
SHIFT SUMMARY: NO ACUTE EVENTS. PT STATED THAT SPUTUM IS CHIEF WELLNESS OFFICER IN COLOR THAN BEFORE. COUGH HAS DECREASED WELL. REMAINS ON O2 @ 2 L/MIN NC. NO EVENTS ON TELE, SR 70'S. C/O CHRONIC BACK PAIN, MEDICATED PER EMAR WITH ADEQUATE RELIEF. TOLERATING PO INTAKE. SHOWERED INDEPENDENTLY THIS MORNING. DID NOT AMBULATE MUCH TODAY.
[2022-11-16 19:54] VITALS: BP 141/69
[2022-11-17 03:26] VITALS: BP 130/64
--- NOTE | 2022-11-17 03:33 | NUR ---
SUBSCRIPTION AGENT SUMMARY VSS. O2 CONTINUES AT 2L/MIN PER NC. LUNG SOUNDS DIMINISHED WITH SOME WHEEZE. SPUTUM SMALL AMTS. UP AD HARVEY. A/O X 4. RT TREATMENTS PER AUG. REQUESTED AND RECEIVED GTRAMADOL WITH TYLENOL AT HS FOR COUGHING DISCOMFORT. HAS BEEN RESTING QUIETLY WITH FEW INTERRUPTIONS. CALL LIGHT IN REACH. WILL CONTINUE TO MONITOR
[2022-11-17 07:10] VITALS: BP 119/61
[2022-11-17] MEDS ORDERED: PRED20 (10:32)
[2022-11-17] MEDS ORDERED: GUAI600T33 PO (10:34)
[2022-11-17] MEDS ORDERED: ALBU90OI INH (10:34)
[2022-11-17] MEDS ORDERED: LEVO750 PO (10:35)
[2022-11-17] MEDS ORDERED: CHANTIX STARTING MON PO (10:38)
--- NOTE | 2022-11-17 10:57 | NUR ---
pt. is awake in bed and welcomes my visit. Pt. is pleasant and is known to this bench chemist from previoius hospitalizations, and rapport is re-established. Facilitated a life review of the pts. response to discharge, and involvement in local recovery programs. Pt. displays evidence of clarity and stability and verbalizes gratitude for this chaplains involvement in helping her get placed at [facility]. Prayed with Pt. Pt. vebalized interest in this bench chemist's family, and verbalized gratitude for the spiritual care visit. CM arrive to begin to process the Pts. discharge home.
--- NOTE | 2022-11-17 13:55 | NUR ---
PATIENT DISCHARGED TO HOME ACCOMPANIED BY HER FRIEND CAROLYN. IV SALINE LOCK REMOVED WITHOUT INCIDENT. VERBALIZED UNDERSTANDING OF D/C INSTRUCTIONS. OFF UNIT VIA W/C AT 1200. NO PERSONAL BELONGINGS LEFT BEHIND IN ROOM.
== END 2022-11-17 12:01 | disposition home or self-care (01) | DRG 193 ==
LOC: ER 13:35 → MEDS 19:25 → ERHOLD 19:25 → MEDS 20:44
PROVIDERS: Internal Medicine; Student in an Organized Health Care Education/Training Program; ADMIT Internal Medicine
DX: J13 Pneumonia due to Streptococcus pneumoniae (principal); J96.01 Acute respiratory failure with hypoxia; J44.1 Chronic obstructive pulmonary disease with (acute) exacerbation; R64 Cachexia; J44.0 Chronic obstructive pulmonary disease with (acute) lower respiratory infection; J20.9 Acute bronchitis, unspecified; Z66 Do not resuscitate; R74.8 Abnormal levels of other serum enzymes; K70.30 Alcoholic cirrhosis of liver without ascites; D86.9 Sarcoidosis, unspecified; G89.29 Other chronic pain; M54.9 Dorsalgia, unspecified; E03.9 Hypothyroidism, unspecified; F17.210 Nicotine dependence, cigarettes, uncomplicated; F10.21 Alcohol dependence, in remission; D47.2 Monoclonal gammopathy; Z20.822 Contact with and (suspected) exposure to COVID-19; Z88.0 Allergy status to penicillin; Z88.2 Allergy status to sulfonamides; Z88.8 Allergy status to other drugs, medicaments and biological substances; Z79.899 Other long term (current) drug therapy; Z85.07 Personal history of malignant neoplasm of pancreas; Z79.01 Long term (current) use of anticoagulants; Z79.52 Long term (current) use of systemic steroids; Z79.891 Long term (current) use of opiate analgesic; Z86.79 Personal history of other diseases of the circulatory system; Z68.20 Body mass index [BMI] 20.0-20.9, adult
CPT/HCPCS: 0241U; 36415; 71046; 80048; 80053; 82803; 83880; 85025; 87070; 87186; 87205; 93005; 93010; 94640; 94644; 94664; 94760; 96365; 96375; 99285-25; A9270; J1100; J1650; J1956; J2930; J7050

== ENCOUNTER → 2023-07-13 | Outpatient (CLI) | payer OTHER ==
[~2023-07-13] MED LIST changes: +ALBU90OI INH; +CHANTIX STARTING MON PO; +FURO20 PO; +GUAI600T33 PO; +IBUP400; +LEVO750 PO; +POTA10T PO; +PRED20; +Prednisone10 MG; +TOPI25 PO
== END | disposition home or self-care (01) ==
LOC: LAB 17:11 → LAB SHORT 17:11
DX: R30.0 Dysuria (principal)
CPT/HCPCS: 87077; 87086; 87186

== ENCOUNTER 2024-08-08 06:34 | Day surgery (SDC) | payer OTHER ==
[~2024-08-08] VITALS: Ht 172.7 cm; Wt 64.0 kg
[~2024-08-08 06:34] MED LIST changes: +Lactated Ringer's 1,000 ML IV ONE
[2024-08-08] MEDS ORDERED: CeFAZolin Sodium 2,000 MG VIAL ONE (06:50)
[2024-08-08] MEDS ORDERED: Tranexamic Acid 100 ML IV ONE (06:53)
[2024-08-08] MEDS ORDERED: EPINEPhrine HCl 1 MG/ML 1ML Amp ONE ×2 (06:56→09:03)
[2024-08-08] MEDS ORDERED: GABA300 (07:20)
[2024-08-08] MEDS ORDERED: Lactated Ringer's 1,000 ML IV ONE ×2 (07:24→09:27)
[2024-08-08] MEDS ORDERED: Ipratropium/Albuterol SulF 2.5-0.5MG/3 ML Amp ONE ×2 (07:35→10:05)
[2024-08-08] MEDS ORDERED: Scopolamine Hydrobromide Patch ONE ×2 (07:40→10:42)
[2024-08-08] MEDS ORDERED: Midazolam HCl 1MG / ML 2ML Vial ONE (07:43)
[2024-08-08] MEDS ORDERED: propofoL 20 ML IV ONE (07:57)
[2024-08-08] MEDS ORDERED: FentaNYL Citrate 50 MCG/ML 2 ML Injection ONE (07:57)
--- NOTE | 2024-08-08 08:09 | NUR ---
08/08/24 0809 Kiara Villalba TIME OUT DONE PRIOR TO NERVE BLOCK WITH [employer] PARKING RAMP ATTENDANT. PT TOLERATED BLOCK WELL.
[2024-08-08] MEDS ORDERED: HYDROmorphone HCl/Pf 1MG SYR ONE (09:02)
[2024-08-08] MEDS ORDERED: Dexamethasone Sod Phos 10 MG/ML 1ML VIAL ONE (09:04)
[2024-08-08] MEDS ORDERED: Ondansetron HCl 2 MG / ML 2ML Vial ONE ×2 (09:04→10:34)
[2024-08-08] MEDS ORDERED: Bupivacaine 0.5% HCl 5 MG/ML 30MLVIAL ONE (09:04)
[2024-08-08] MEDS ORDERED: Rocuronium Bromide 10 MG/ML 5ML Injection IV ONE (09:04)
[2024-08-08] MEDS ORDERED: Ketorolac Tromethamine 30mg Vial ONE (09:04)
[2024-08-08] MEDS ORDERED: Sugammadex Sodium 200 MG/2ML SDV (100 MG/ML) ONE (09:40)
[2024-08-08] MEDS ORDERED: DiphenhydrAMINE HCl 50 MG/ML 1ML Vial ONE (09:45)
--- NOTE | 2024-08-08 10:44 | NUR ---
08/08/24 1044 Briana Segal PT STATED THAT SHE WAS FEELING NAUSEATED. ZOFRAN 4MG GIVEN VIA IV, PUSHED SLOWLY, PER DOCTOR'S ORDERS. MARGARITO, BANDAR.
[2024-08-08] MEDS ORDERED: OxyCODONE HCL 5 MG TAB ONE (11:10)
[2024-08-08] MEDS ORDERED: Metoclopramide HCl 5MG / ML 2ML Vial ONE (11:12)
[2024-08-08 12:09] VITALS: BP 120/57
== END 2024-08-08 12:22 | disposition home or self-care (01) ==
LOC: ORSCSDS 06:34
PROVIDERS: Orthopaedic Surgery Sports Medicine
PROC: 0LQ14ZZ Repair Right Shoulder Tendon, Percutaneous Endoscopic Approach (ICD-10-PCS; principal; 2024-08-08 08:00)
PROC: 0RNJ4ZZ Release Right Shoulder Joint, Percutaneous Endoscopic Approach (ICD-10-PCS; principal; 2024-08-08 08:00)
DX: M75.101 Unspecified rotator cuff tear or rupture of right shoulder, not specified as traumatic (principal); M75.21 Bicipital tendinitis, right shoulder; F17.210 Nicotine dependence, cigarettes, uncomplicated; J44.9 Chronic obstructive pulmonary disease, unspecified; E03.9 Hypothyroidism, unspecified; Z79.899 Other long term (current) drug therapy
CPT/HCPCS: A9270; C1713; J0171; J0690; J1100; J1171; J1200; J1885; J2250; J2405; J2704; J2765; J3010; J7120

== ENCOUNTER → 2024-12-21 | Outpatient (CLI) | payer OTHER ==
[~2024-12-21] MED LIST changes: +GABA300; -Lactated Ringer's 1,000 ML IV ONE
== END ==
LOC: LAB 13:39 → LAB SHORT 13:39
DX: R39.9 Unspecified symptoms and signs involving the genitourinary system (principal)
CPT/HCPCS: 87077; 87086; 87186; 87335

== ENCOUNTER → 2025-01-19 | Outpatient (CLI) | payer OTHER ==
[2025-01-20 10:56] LABS: Bacterial Vaginosis PCR Negative (NEGATIVE); Candida Group, PCR NOT DETECTED (NOT DETECT); Candida glabrata-krusei, PCR NOT DETECTED (NOT DETECT)
== END ==
LOC: LAB 17:15 → LAB SHORT 17:15
DX: R30.0 Dysuria (principal)
CPT/HCPCS: 81515; 87086